=== PATIENT | male | born 1940 | race Caucasian/White ===

== ENCOUNTER 2018-04-14 16:06 | Inpatient (IN) | payer OTHER ==
[~2018-04-14] VITALS: Ht 162.6 cm; Wt 59.0 kg
[~2018-04-14 16:06] MED LIST: CODE118S2 PO; RAMI5CAP35 PO
--- NOTE | 2018-04-14 16:30 | NUR ---
Admitting notes Direct admit from the office of Dr. Cortes ambulatory accompanied by the with a chief complaint of hyponatremia , oriented to room, safety , call light within reach , needs attended.
[2018-04-14 16:38] VITALS: BP_SYST 99
[2018-04-14] MEDS ORDERED: SODIUM POLYSTYRENE SULFONATE 15 GM/60 ML UDBTL PO ONE (16:45)
--- NOTE | 2018-04-14 17:03 | NUR ---
CARDIOLOGY CONSULT CALLED TO DR Cesar DUNLAP, RE: HX OF AFIB. SPOKE TO LUIGI
--- NOTE | 2018-04-14 17:05 | NUR ---
GI CONSULT WAS CALLED TO DR CEDILLO, RE: CIRRHOSIS. SPOKE TO LANCE
--- NOTE | 2018-04-14 17:06 | NUR ---
CONSULTATION PAGED/CALLED Reason for Consultation: [] HYPONATREMIA Person Who was Notified: [] LANCE Consulting Physician: [] DR Chito GODOY GETTER OPERATOR FOR DR Janette NATHAN Pulper Operator Specialty: [] NEPHROLOGY Ordering Physician: [] DR Carie CHURCH
--- NOTE | 2018-04-14 17:08 | NUR ---
CONSULTATION PAGED/CALLED Reason for Consultation: [] HX OF AFIB Person Who was Notified: [] LUIGI Consulting Physician: [] DR OLESYA DUNLAP Sack Cleaner Specialty: [] CARDIOLOGY Ordering Physician: [] DR Carie CHURCH
--- NOTE | 2018-04-14 17:11 | NUR ---
CONSULTATION PAGED/CALLED Reason for Consultation: [] CIRRHOSIS Person Who was Notified: [] LANCE Consulting Physician: [] DR Lucila CEDILLO Film Loader Specialty: [] GI Ordering Physician: [] DR Carie CHURCH
[2018-04-14 17:16] LABS: BASOPHILS % (AUTO) 0.6 % (0.0-2.0); EOSINOPHILS # (AUTO) 0.1 K/uL (0.0-0.4); EOSINOPHILS % (AUTO) 1.6 % (0.0-4.0); HEMATOCRIT 34.4 % (36-54); HEMOGLOBIN 11.6 g/dL (14.0-18.0); LYMPHOCYTES # (AUTO) 0.9 K/uL (1.0-5.5); LYMPHOCYTES % (AUTO) 17.7 % (20.5-51.5); MEAN CORPUSCULAR HEMOGLOBIN 31 pg (27-31); MEAN CORPUSCULAR HGB CONC 34 % (32-36); MEAN CORPUSCULAR VOLUME 91 fL (79.0-98.0); MONOCYTES # (AUTO) 0.6 K/uL (0.0-1.0); MONOCYTES % (AUTO) 10.7 % (1.7-9.3); NEUTROPHILS # (AUTO) 3.7 K/uL (1.8-7.7); NEUTROPHILS % (AUTO) 69.4 % (40.0-70.0); PLATELET COUNT (AUTO) 210 K/uL (130-430); WHITE BLOOD COUNT (AUTO) 5.3 K/uL (4.8-10.8)
[2018-04-14] MEDS ORDERED: CARV3.1246 PO (17:21)
[2018-04-14] MEDS ORDERED: FAMO20TA8 PO (17:21)
[2018-04-14] MEDS ORDERED: DILT30TA36 PO (17:21)
[2018-04-14] MEDS ORDERED: DONE5TAB26 PO (17:21)
[2018-04-14] MEDS ORDERED: BUSP5TAB3 (17:21)
[2018-04-14] MEDS ORDERED: RIOC2.5T PO (17:21)
[2018-04-14] MEDS ORDERED: FURO-149 PO (17:21)
[2018-04-14] MEDS ORDERED: DIGO125T4 PO (17:21)
[2018-04-14] MEDS ORDERED: IPRATROPIUM/ALBUTEROL SULFATE 3 ML AMPUL.NEB INH PRN (17:30)
[2018-04-14 17:31] LABS: ALANINE AMINOTRANSFERASE 18 U/L (12-78); ALBUMIN 3.6 g/dL (3.4-4.8); ANION GAP 9 (5-15); ASPARTATE AMINOTRANSFERASE 25 U/L (10-37); CALCIUM 8.6 mg/dL (8.4-11.0); CHLORIDE 87 mmol/L (98-107); CREATININE 1.91 mg/dL (0.55-1.30); GLUCOSE 112 mg/dL (70-99); POTASSIUM 5.1 mmol/L (3.5-5.1); TOTAL BILIRUBIN 0.6 mg/dL (0.0-1.0); UREA NITROGEN, BLOOD 53 mg/dL (8-21)
[2018-04-14 17:33] LABS: SODIUM SERUM 119 mmol/L (136-145)
[2018-04-14] MEDS: NACL 0.9% 1,000 ML IV SCH (17:35)
--- NOTE | 2018-04-14 17:48 | NUR ---
Physical Assessment: Patient ambulatory, awake, alert and oriented. Stable. No skin issues. Safety measures in placed. Call light within reach.
[2018-04-14 17:55] VITALS: BP_SYST 99
--- NOTE | 2018-04-14 19:30 | NUR ---
Closing notes: Patient on bed resting. Stable. Needs attended. at bedside. Safety measures in placed. Call light within reach. Report given to SLIM Wise. Addendum: 04/14/18 at 1934 by Vannesa Peoples RN Report given to SLIM Davis not to SLIM Wise.
--- NOTE | 2018-04-14 20:00 | NUR ---
INITIAL CONTACT patient is alert oriented to name and place. patient has IV on right forearm 22G, infusing NS at 50 ml/hr, no infiltration noted. patient has SCD on bilateral lower extremity, tolerating well. plan of care discussed and vised patient to call PRN. will continue to monitor. bed in lowest position, call light within reach, bed alarm on.
[2018-04-14 20:05] VITALS: BP_SYST 104
--- NOTE | 2018-04-14 21:05 | NUR ---
PAIN patient complaining of sever cramping pain on his bilateral lower extremity, 08/15. SCD readjusted and attempted to massage patient's leg. patient states that massaging it is making it worse. informed patient to try to flex and extend his leg and that MD would be paged for pain medication. patient verbalized understanding. will continue to monitor.
--- NOTE | 2018-04-14 21:06 | NUR ---
Paged Dr. Cortes Paged Dr. Cortes, dialed [phone], s/w Chris.
[2018-04-14] MEDS: traZODone HCL 50 MG TABLET (DESYREL) PO SCH (21:17)
--- NOTE | 2018-04-14 21:32 | NUR ---
Second Call for Dr. Cortes Second Call for Dr. Cortes, dialed [phone], s/w Maria Teresa
--- NOTE | 2018-04-14 21:38 | NUR ---
RETURNED CALL Dr. Cortes returned call. informed him that patient is complaining of cramping pain 08/15. Dr. Cortes asked if patient has scd placed on his legs. informed him that patient does and patient still complains of pain. attempted to massage patient's leg, but patient states that the pain is too severe. order received for tramadol 50mg po q8HR for pain. order read back and verified. he asked if patient is agitated, per daughter, patient can get severely agitated. informed him that patient is agitated right now due to pain, he did receive his trazodone 30minutes earlier. Dr. Cortes stated to place order for sitter if patient gets agitated. order read back and verified.
[2018-04-14] MEDS ORDERED: traMADol HCL HCL 50 MG TABLET (ULTRAM) PO PRN (21:45)
--- NOTE | 2018-04-14 21:55 | NUR ---
PAIN MEDICATION AND EDUCATION administered pain medication per order. patient educated on side effects and increased risk for fall due to one of side effect being dizziness. advised patient not to ambulate with assist. patient requesting SCD to be removed, educated patient on the indication for SCD. patient verbalized understanding. will continue to monitor. bed in lowest position, call light within reach, bed alarm on.
[2018-04-14 22:12] LABS: ANION GAP 8 (5-15); CALCIUM 8.3 mg/dL (8.4-11.0); CHLORIDE 87 mmol/L (98-107); CREATININE 1.68 mg/dL (0.55-1.30); GLUCOSE 91 mg/dL (70-99); POTASSIUM 5.1 mmol/L (3.5-5.1); UREA NITROGEN, BLOOD 50 mg/dL (8-21)
[2018-04-14 22:29] LABS: SODIUM SERUM 118 mmol/L (136-145)
--- NOTE | 2018-04-14 22:29 | NUR ---
CRITICAL VALUE call received from Azra Castellanos from laboratory for critical value of sodium 118 and chloride 87. value read back and verified. will inform
--- NOTE | 2018-04-14 22:32 | NUR ---
Paged Dr. Cortes Paged Dr. Cortes, dialed [phone], s/w Chris.
--- NOTE | 2018-04-14 22:40 | NUR ---
RETURNED CALL Dr. Cortes returned call. informed him that patient's Na was 118, Cl 87. he states that he did not order chemistry. informed him that Dr. Colmenares ordered it. asked if he wanted Dr. Colmenares called. he asked what was potassium level and to call Dr. Colmenares.
--- NOTE | 2018-04-14 22:52 | NUR ---
Paged Dr. Cindy Zhao is computer system validation specialist Paged Dr. Cindy Zhao is computer system validation specialist, dialed [phone]. SLIM Oquendo spoke to the doctor.
--- NOTE | 2018-04-14 22:55 | NUR ---
SPOKE WITH MD spoke with Dr. White. informed her that patient's sodium is 118, chloride is 87. she asked previous level. informed her that sodium was 119. she asked BUN and creatinine level. informed her the level. Dr. White asked about urine creatinine level. informed her that it has not been collected yet. she asked if patient has not urinated the whole night. informed her that patient had some incontinence but not alot. order received for browning catheter insertion if urine residual is greater than 200ml and to increase fluid to NS 80ml/hr. order read back and verified. after speaking with AMERICAN SIGN LANGUAGE TEACHER, informed Dr. White that per AMERICAN SIGN LANGUAGE TEACHER, patient had urine output earlier, but he forgot to collect urine. asked if she wanted me to wait until patient urinates or if she wanted straight cath patient. she states to ask patient if he is able to urinate, but also to do bladder scan first then browning catheter if patient is retaining urine. will carry out order.
--- NOTE | 2018-04-14 23:30 | NUR ---
BROWNING CATHETER INSERTION bladder scan was done. patient had residual of 394ml. asked patient if he is able to urinate. patient does not answer. palpated bladder, patient complaining of discomfort, and bladder distension noted. inserted 16Fr Browning Catheter using sterile technique. patient tolerated well. after insertion, noted 340ml of clear, yellow urine draining. secured catheter in place, hung it lower than bladder. will continue to monitor. Addendum: 04/15/18 at 0211 by Albina Valdez RN informed patient that since he is unable to urinate and complains of discomfort when bladder is palpated and patient has residual, browning catheter would be inserted. patient verbalized understanding.
[2018-04-14 23:53] LABS: BILIRUBIN,URINE NEGATIVE (NEGATIVE); BLOOD, URINE NEGATIVE (NEGATIVE); CLARITY/URINE CLEAR (CLEAR); COLOR,URINE YELLOW (YELLOW); GLUCOSE,URINE NEGATIVE (NEGATIVE); KETONES,URINE NEGATIVE (NEGATIVE); LEUKOCYTE ESTERASE ,URINE NEGATIVE (NEGATIVE); NITRITE, URINE NEGATIVE (NEGATIVE); PROTEIN URINE NEGATIVE (NEGATIVE); UROBILINOGEN,URINE 0.2 (0.2-1.0)
[2018-04-15 00:52] VITALS: BP_SYST 98
--- NOTE | 2018-04-15 02:10 | NUR ---
ROUNDS patient sleeping in bed, breathing even and unlabored. bed in lowest position, call light within reach, bed alarm on. will continue to monitor.
[2018-04-15 04:00] VITALS: BP_SYST 98
--- NOTE | 2018-04-15 04:01 | NUR ---
ROUNDS patient denies pain or shortness of breath. advised patient to call PRN. patient verbalized understanding. bed in lowest position, call light within reach, bed alarm on.
--- NOTE | 2018-04-15 04:20 | NUR ---
CALLED Dr. White called asking urine creatinine level. informed her that patient's result is not back yet. she states that she wanted it done STAT and to call laboratory and to change order to stat.
--- NOTE | 2018-04-15 04:22 | NUR ---
called laboratory. spoke with SHIRA. informed him that doctor wanted urine creatinine and random sodium done as stat asked if it would make difference if i change order to stat since urine creatinine was not placed as stat. he states that it would not make difference since the specimen needs to be sent to [facility] and they process it and sent the result. will inform .
--- NOTE | 2018-04-15 04:26 | NUR ---
Paged Dr. White Paged Dr. White, dialed [phone]. SLIM Oquendo spoke to the doctor.
--- NOTE | 2018-04-15 04:34 | NUR ---
SPOKE WITH informed Dr. White that the test is done in [facility] and they slat pickler specimen at 0700 so it would not be processed until it's sent to [facility]. order received to add urine osmolality and serum osmolality. order read back and verified. also verified with her that urine creatinine and random sodium is the test she wanted done. she verified that those are the test she wanted.
--- NOTE | 2018-04-15 04:43 | NUR ---
called laboratory and asked if they have enough urine for urine osmolality test. was informed that they have enough urine for urine osmolality.
--- NOTE | 2018-04-15 06:29 | NUR ---
ROUNDS patient sleeping in bed, no distress noted. bed in lowest position, call light within reach, bed alarm on. will continue to monitor. IV fluid infusing NS at 80ml/hr.
[2018-04-15 06:37] LABS: INR 1.1 (0.80-1.20); PROTHROMBIN TIME 11.5 SECS (9.5-12.5)
[2018-04-15 06:52] LABS: ALANINE AMINOTRANSFERASE 17 U/L (12-78); ALBUMIN 3.1 g/dL (3.4-4.8); ANION GAP 5 (5-15); ASPARTATE AMINOTRANSFERASE 24 U/L (10-37); CALCIUM 8.2 mg/dL (8.4-11.0); CHLORIDE 89 mmol/L (98-107); CREATININE 1.59 mg/dL (0.55-1.30); FREE T4 (FREE THYROXINE) 0.9 ng/dL (0.6-1.6); GLUCOSE 89 mg/dL (70-99); POTASSIUM 4.6 mmol/L (3.5-5.1); THYROID STIMULATING HORMONE 1.25 uIu/mL (0.34-4.82); TOTAL BILIRUBIN 0.6 mg/dL (0.0-1.0); UREA NITROGEN, BLOOD 43 mg/dL (8-21)
[2018-04-15 07:05] LABS: BASOPHILS % (AUTO) 0.4 % (0.0-2.0); EOSINOPHILS # (AUTO) 0.1 K/uL (0.0-0.4); EOSINOPHILS % (AUTO) 2.9 % (0.0-4.0); HEMATOCRIT 31.8 % (36-54); HEMOGLOBIN 10.8 g/dL (14.0-18.0); LYMPHOCYTES # (AUTO) 0.8 K/uL (1.0-5.5); LYMPHOCYTES % (AUTO) 17.9 % (20.5-51.5); MEAN CORPUSCULAR HEMOGLOBIN 30 pg (27-31); MEAN CORPUSCULAR HGB CONC 34 % (32-36); MEAN CORPUSCULAR VOLUME 90 fL (79.0-98.0); MONOCYTES # (AUTO) 0.6 K/uL (0.0-1.0); NEUTROPHILS # (AUTO) 2.8 K/uL (1.8-7.7); NEUTROPHILS % (AUTO) 64.8 % (40.0-70.0); PLATELET COUNT (AUTO) 190 K/uL (130-430); RED BLOOD CELL COUNT(AUTO) 3.55 MIL/uL (4.2-6.2); WHITE BLOOD COUNT (AUTO) 4.3 K/uL (4.8-10.8)
[2018-04-15 07:07] LABS: SODIUM SERUM 119 mmol/L (136-145)
--- NOTE | 2018-04-15 07:11 | NUR ---
CALL FROM LAB received call from laboratory regarding sodium of 119. will inform dayshift RN to inform MD.
[2018-04-15] MEDS: NACL 0.9% 1,000 ML IV SCH ×2 (07:24→20:14)
--- NOTE | 2018-04-15 07:28 | NUR ---
END OF SHIFT care endorsed to Mendoza SMALLS. informed him that patient's sodium level is 119. Dr. White was made aware of sodium level of 118 from yesterday and will come see patient in morning. no distress noted with patient.
--- NOTE | 2018-04-15 07:30 | NUR ---
Initial Note Received report from the night nurse Azra. Pt AOX4. No sign of distress noted at this time. Bed is at lowest position with bed alarm on. Call light within reach.
[2018-04-15 07:50] VITALS: BP_SYST 96
--- NOTE | 2018-04-15 09:26 | NUR ---
RN Rounds Pt resting and no sign of distress noted at this time. Bed is at lowest position with bed alarm on. Call light within reach. Pt is now NPO waiting for abdominal US testing.
--- NOTE | 2018-04-15 10:20 | NUR ---
Abnormal Labs Na 119, BUN 43, Creatinine 1.43, Calcium 8.2 Dr. Colmenares aware. No new orders received.
[2018-04-15] MEDS ORDERED: FUROSEMIDE 20 MG TABLET PO ONE (10:30)
--- NOTE | 2018-04-15 11:28 | NUR ---
RN Rounds Pt awake and and does not complain of any pain at this time. Bed is at lowest position with bed alarm on. Call light within reach.
--- NOTE | 2018-04-15 11:33 | NUR ---
RN Rounds Pt resting and does not show any sign of distress at this time. Family member at bedside. Bed is at lowest position with bed alarm on. Call light within reach.
[2018-04-15 11:37] LABS: URINE SODIUM, RANDOM 50 mmol/L (40-220)
[2018-04-15 12:00] VITALS: BP_SYST 99
--- NOTE | 2018-04-15 13:40 | NUR ---
RN Rounds Pt awake and does not show any sign of distress at this time. Bed is at lowest position with bed alarm on. Call light within reach.
--- NOTE | 2018-04-15 15:22 | NUR ---
RN Rounds Pt resting and does not show any sign of distress at this time. Family members at bedside. Bed is at lowest position with bed alarm on. Call light within reach.
[2018-04-15 16:00] VITALS: BP_SYST 97
--- NOTE | 2018-04-15 17:15 | NUR ---
RN Rounds Pt awake and does not complain of any pain at this time. Family members at bedside. Bed is at lowest position with bed alarm on. Call light within reach.
--- NOTE | 2018-04-15 18:49 | NUR ---
Closing Note Pt AOX4. No sign of distress noted at this time. Bed is at lowest position with bed alarm on. Call light within reach. Pt's Na is at 119, BUN 43, creatinine 1.59. Dr. Colmenares aware. He only ordered 20 mg of lasix. No more orders received.
--- NOTE | 2018-04-15 20:00 | NUR ---
Initial Notes Received patient resting in bed, awake, alert, easily disoriented, Romanian speaking. Patient denies any acute distress or pain at this time. Vital signs stable. Breathing is even and unlabored. IV site patent/clean/dry. Torres draining to gravity. Educated patient regarding use of call light for assistance and fall precautions, patient verbalized understanding. Call light in hand, fall precautions in place. Will continue to monitor.
[2018-04-15 20:15] VITALS: BP_SYST 96
[2018-04-15] MEDS: traZODone HCL 50 MG TABLET (DESYREL) PO SCH (20:15)
[2018-04-15] MEDS: FUROSEMIDE 20 MG TABLET PO SCH (20:15)
--- NOTE | 2018-04-15 22:00 | NUR ---
Nursing Notes Patient resting in bed, awake, disoriented requiring frequent reorientation to surroundings. Patient denies any acute distress at this time. Hygiene care provided by CONTROL SYSTEMS TECHNICIAN. Patient's contacted multiple times per patient's request, patient talked to on phone. Repositioned patient for comfort. Needs addressed. Call light in hand, fall precautions in place. Will continue to monitor.
--- NOTE | 2018-04-16 | NUR ---
Nursing Notes Patient resting in bed with eyes closed, easily aroused. Patient denies any acute distress or pain at this time. Breathing is even and unlabored. IV site patent/clean/dry. Torres draining to gravity. Repositioned patient for comfort. Call light in hand, fall precautions in place.
[2018-04-16 00:45] VITALS: BP_SYST 90
--- NOTE | 2018-04-16 02:00 | NUR ---
Nursing Notes Patient resting in bed with eyes closed. No acute distress noted, breathing is even and unlabored. IV site patent/clean/dry. Torres draining to gravity. Call light in hand, fall precautions in place. Will continue to monitor.
--- NOTE | 2018-04-16 04:20 | NUR ---
Nursing Notes Patient resting in bed with eyes closed, easily aroused. Patient denies any acute distress, pain, or needs at this time. Breathing is even and unlabored. IV site patent. Torres draining to gravity. Call light in hand, fall precautions in place, will continue to monitor.
--- NOTE | 2018-04-16 06:34 | NUR ---
Closing Notes Patient resting in bed with eyes closed, easily aroused. Patient denies any acute distress or pain at this time. Breathing is even and unlabored. IV site patent/clean/dry, no S/S infection/infiltration noted. Torres draining yellow urine to gravity. All needs addressed throughout shift. Call light in hand, fall precautions in place. Will continue to monitor for changes and safety, and endorse all patient care/needs to oncoming nurse.
--- NOTE | 2018-04-16 07:20 | NUR ---
am rounds: patient sleeping during rounds. bedside report given by night nurse shivam. call light with in reach. bed locked at lowest position. bed alarm on.stable.
--- NOTE | 2018-04-16 07:56 | NUR ---
Nutrition Update Gerald Scale 18 noted. Pt admitted for Hyponatremia Diet: 2gm Na diet BMI: 22.3 kg/m2 RD to follow per nutrition care standards.
[2018-04-16 09:10] VITALS: BP_SYST 112
[2018-04-16] MEDS: NACL 0.9% 1,000 ML IV SCH ×2 (09:22→22:26)
[2018-04-16] MEDS: FUROSEMIDE 20 MG TABLET PO SCH ×2 (10:00→21:00)
--- NOTE | 2018-04-16 10:04 | NUR ---
physical therapy: patient seen walking via fww with physical therapist in the room and going outside the nursing station then back to his bed.with good steady gait.
[2018-04-16 12:00] VITALS: BP_SYST 105
--- NOTE | 2018-04-16 12:16 | NUR ---
rn rounds: patient's daughter at the bedside.patient resting. no needs this time. stable.
[2018-04-16 13:42] LABS: ANION GAP 6 (5-15); CALCIUM 8.3 mg/dL (8.4-11.0); CHLORIDE 95 mmol/L (98-107); CREATININE 1.53 mg/dL (0.55-1.30); GLUCOSE 105 mg/dL (70-99); POTASSIUM 4.3 mmol/L (3.5-5.1); SODIUM SERUM 126 mmol/L (136-145); UREA NITROGEN, BLOOD 37 mg/dL (8-21)
--- NOTE | 2018-04-16 13:43 | NUR ---
F/U CARDIO CONSULT HX OF AFIB DR Cesar DUNLAP [phone] S/W HERIBERTO EXCHANGE@ [phone]
--- NOTE | 2018-04-16 14:21 | NUR ---
Spoke with Dr. Valles updates given on new labs and current telemetry rhythm, MD to see the patient later today.
--- NOTE | 2018-04-16 14:45 | NUR ---
MD ROUNDS: PATIENT SEEN BY DR CHURCH AND SODIUM RESULTS SEEN.CALLED DR NATHAN FOR THE RESULTS BUT DID NOT RETURN THE CALL.
[2018-04-16 16:00] VITALS: BP_SYST 108
--- NOTE | 2018-04-16 16:35 | NUR ---
cardio rounds: patient seen by dr alexandra and spoke to family at the bedside.updates were given by .
--- NOTE | 2018-04-16 19:35 | NUR ---
CLOSING NOTES: ENDORSED TO NIGHT NURSE [place] PATIENT SLEEPING DURING ROUNDS. BED ALARM ON. CALL LIGHT WITH IN REACH. BED LOCKED AT LOWEST POSITION. STABLE.
--- NOTE | 2018-04-16 19:40 | NUR ---
Opening note Pt asleep, easily arousable. VSS satting at 98% on room air. Pt denies any pain at this time. IV fluids infusing as ordered R. FA 22G no infiltration noted. Torres catheter secured noted with clear, yellow urine. Call light within reach. Bed low, locked and alarm on. Will continue to monitor pt.
[2018-04-16 19:50] VITALS: BP_SYST 91
[2018-04-16] MEDS: traZODone HCL 50 MG TABLET (DESYREL) PO SCH (21:00)
[2018-04-16] MEDS: QUEtiapine FUMARATE 25 MG TABLET PO SCH (22:17)
--- NOTE | 2018-04-16 22:30 | NUR ---
Hypotension Pt alert, awake, pt denies dizziness. BP 75/[address] Cortes paged at [address]. Dr[address] Cortes called back at 9203 and informed Pt is hypotensive and on fluid restriction 800ml/daily, and received order to give NS 250ml bolus x1 now and to hold Lasix and BP meds if SBP is below 110. CRN aware. Will carry out orders.
--- NOTE | 2018-04-16 22:53 | NUR ---
Bolus given Bolus of NS 250ml x 1 given.
[2018-04-17] VITALS (7 sets, daily range): BP systolic 81–104
--- NOTE | 2018-04-17 00:30 | NUR ---
Rounds Pt asleep. Respirations even, unlabored. IV fluids infusing as ordered R. FA 22G no infiltration noted. Call light within reach. Bed alarm on. To monitor.
--- NOTE | 2018-04-17 04:30 | NUR ---
Rounds BP 81/53 HR 62, Pt asleep, easily arousable, denies any dizziness or sob. Call light within reach. To monitor.
[2018-04-17 06:15] LABS: BASOPHILS % (AUTO) 0.4 % (0.0-2.0); EOSINOPHILS # (AUTO) 0.1 K/uL (0.0-0.4); EOSINOPHILS % (AUTO) 2.6 % (0.0-4.0); HEMOGLOBIN 11.6 g/dL (14.0-18.0); LYMPHOCYTES # (AUTO) 1.2 K/uL (1.0-5.5); MEAN CORPUSCULAR HEMOGLOBIN 31 pg (27-31); MEAN CORPUSCULAR HGB CONC 34 % (32-36); MEAN CORPUSCULAR VOLUME 90 fL (79.0-98.0); MONOCYTES # (AUTO) 0.7 K/uL (0.0-1.0); NEUTROPHILS # (AUTO) 3.5 K/uL (1.8-7.7); PLATELET COUNT (AUTO) 188 K/uL (130-430); RED BLOOD CELL COUNT(AUTO) 3.76 MIL/uL (4.2-6.2); RED CELL DISTRIBUTION WIDTH 13.9 % (9.0-15.0); WHITE BLOOD COUNT (AUTO) 5.5 K/uL (4.8-10.8)
[2018-04-17 06:34] LABS: ALANINE AMINOTRANSFERASE 17 U/L (12-78); ANION GAP 7 (5-15); ASPARTATE AMINOTRANSFERASE 21 U/L (10-37); CALCIUM 8.3 mg/dL (8.4-11.0); CHLORIDE 96 mmol/L (98-107); CREATININE 1.43 mg/dL (0.55-1.30); GLUCOSE 85 mg/dL (70-99); POTASSIUM 3.9 mmol/L (3.5-5.1); SODIUM SERUM 126 mmol/L (136-145); TOTAL BILIRUBIN 0.7 mg/dL (0.0-1.0); UREA NITROGEN, BLOOD 32 mg/dL (8-21)
--- NOTE | 2018-04-17 06:45 | NUR ---
Closing note Pt asleep, arousable. No acute distress noted. IV fluids infusing on R. FA 22G no infiltration noted. Pt to go for usd guided paracentesis, consent signed in chart. Call light within reach. Bed low, alarm on. To endorse to am nurse.
--- NOTE | 2018-04-17 07:50 | NUR ---
INITIAL NOTE RECEIVED PT IN BED, NO S/S OF DISTRESS OR SOB NOTED, PT HAS NO C/O PAIN AT THIS TIME, PT IN STABLE CONDITION, PT AAOX4, VERBAL, IV CATHETER PATENT, NO SIGNS OF INFECTION OR INFILTRATION NOTED, RUNNING IV FLUIDS ORDERED. BED AT LOWEST POSITION, CALL LIGHT WITHIN REACH, WILL CONTINUE TO MONITOR PT FOR ANY CHANGES. FALL AND SAFETY PRECAUTIONS IN PLACE. F/C DRAINING VIA GRAVITY. PT HAS BILATERAL SCD'S IN PLACE.
[2018-04-17] MEDS: FUROSEMIDE 20 MG TABLET PO SCH ×2 (08:25→21:00)
[2018-04-17] MEDS: NACL 0.9% 1,000 ML IV SCH ×2 (08:26→20:46)
[2018-04-17] MEDS ORDERED: LIDOCAINE 1% 10 MG/ML, 20 ML MDV INJ ONE (08:45)
--- NOTE | 2018-04-17 10:20 | NUR ---
ROUNDS PT IN BED, NO S/S OF DISTRESS OR SOB NOTED, PT HAS NO C/O PAIN AT THIS TIME, PT IN STABLE CONDITION. PT RESTING COMFORTABLY, WILL CONTINUE TO MONITOR PT FOR ANY CHANGES.
--- NOTE | 2018-04-17 11:09 | NUR ---
PARACENTESIS UNABLE TO PERFORM PARACENTESIS DUE TO NOT ENOUGH FLUID IN ABDOMEN.
--- NOTE | 2018-04-17 12:02 | NUR ---
Dietitian Recommendations * Recommend 2 gm Na, 800 ml fluid restriction LP, RD Please refer to Nutrition Assessment for details.
--- NOTE | 2018-04-17 15:00 | NUR ---
ROUNDS DR LYNNETTE CHRISTINE, AWARE OF PATIENTS CONDITION.
--- NOTE | 2018-04-17 15:30 | NUR ---
PHYSICAL THERAPY CO-SIGN The Physical Therapy Progress Notes documented by Metal Engraver have been reviewed. I concur with the documentation of this ORTHOPAEDIC DOCTOR. Plan: continue as per plan of care if he remains in this hospital. Reviewed/Co-Signed by: Michelle Garcia PT Documentation Done by: Kaushik Winkler ORTHOPAEDIC DOCTOR Addendum: 04/17/18 at 1538 by Michelle Garcia PT Amended: Links added.
--- NOTE | 2018-04-17 15:35 | NUR ---
MD FROST SPOKE WITH DR CHURCH IN REGARDS TO BLOOD PRESSURE AND PT GOING HOME TODAY, PER MD PT TO STAY ONE MORE DAY AND START HIM ON ADEMPAS PER ORDER AND IN HIS MEDICATION RECONCILIATION SHEET.
[2018-04-17] MEDS: ADEMPAS 2.5 MG PO SCH ×2 (17:00→21:00)
--- NOTE | 2018-04-17 17:28 | NUR ---
DR CHURCH WAS PAGED
--- NOTE | 2018-04-17 17:35 | NUR ---
MD CALL DR LYNNETTE ROGEL, AWAITING CALL BACK TO NOTIFY HIM OF PATIENT'S BLOOD PRESSURE AND THE MEDICATION DUE AT 1700.
--- NOTE | 2018-04-17 17:55 | NUR ---
MD MICHAEL CHRISTINE, AWARE OF PATIENTS CONDITION. Addendum: 04/17/18 at 1807 by Nicolle Dunn RN SPOKE WITH DR CHURCH AND HE STATED TO HOLD THE MEDICATION DUE TO LOW BLOOD PRESSURE, PARAMETERS IN PLACE TO HOLD IF SBP LESS THAN 100
--- NOTE | 2018-04-17 18:09 | NUR ---
CALL DR DUNLAP PAGED TO SEE IF HE WAS COMING IN TO SEE PT, AWAITING CALL BACK. Addendum: 04/17/18 at 1820 by Nicolle Dunn RN DR DUNLAP ROUNDING AWARE OF PATIENTS CONDITION, NEW ORDERS GIVEN.
[2018-04-17] MEDS ORDERED: NS 250 ML IV ONE (18:30)
--- NOTE | 2018-04-17 18:52 | NUR ---
CLOSING NOTE PT IN BED, NO S/S OF DISTRESS OR SOB NOTED, PT HAS NO C/O PAIN AT THIS TIME, PT IN STABLE CONDITION, PT AAOX4, VERBAL, IV CATHETER PATENT, NO SIGNS OF INFECTION OR INFILTRATION NOTED, RUNNING IV FLUIDS ORDERED. BED AT LOWEST POSITION, CALL LIGHT WITHIN REACH, WILL ENDORSE CARE OF PT TO INCOMING NURSE. FALL AND SAFETY PRECAUTIONS IN PLACE. F/C DRAINING VIA GRAVITY. PT HAS BILATERAL SCD'S IN PLACE.
--- NOTE | 2018-04-17 20:01 | NUR ---
Opening note Pt asleep, easily arousable. VSS. No distress noted. IV fluids infusing as ordered R. Fa 22G clear, patent. Torres cath intact. Call light remains within reach. To monitor.
[2018-04-17] MEDS ORDERED: RIOCIGUAT 2.5 MG PO SCH (21:00)
[2018-04-17] MEDS: traZODone HCL 50 MG TABLET (DESYREL) PO SCH (21:00)
[2018-04-17] MEDS: QUEtiapine FUMARATE 25 MG TABLET PO SCH (22:31)
[2018-04-18] VITALS: BP_SYST 109
--- NOTE | 2018-04-18 00:25 | NUR ---
Rounds Pt asleep. Respiration even and unlabored. Call light within reach. Bed alarm on. To monitor.
--- NOTE | 2018-04-18 03:29 | NUR ---
Rounds Pt asleep. No s/s distress noted. Call light within reach. Bed alarm on. Will continue to monitor.
--- NOTE | 2018-04-18 06:20 | NUR ---
Closing note Pt asleep. No acute distress noted. IVF infusing R. FA 22G no infiltration noted. Bruno SCDs on. BEd low/locked, bed alarm on. To endorse to am nurse.
[2018-04-18 06:44] LABS: ANION GAP 8 (5-15); CHLORIDE 99 mmol/L (98-107); CREATININE 1.23 mg/dL (0.55-1.30); GLUCOSE 91 mg/dL (70-99); POTASSIUM 3.9 mmol/L (3.5-5.1); SODIUM SERUM 128 mmol/L (136-145); UREA NITROGEN, BLOOD 24 mg/dL (8-21)
[2018-04-18 07:02] LABS: BASOPHILS % (AUTO) 0.3 % (0.0-2.0); EOSINOPHILS # (AUTO) 0.2 K/uL (0.0-0.4); EOSINOPHILS % (AUTO) 3.2 % (0.0-4.0); HEMOGLOBIN 11.3 g/dL (14.0-18.0); LYMPHOCYTES # (AUTO) 0.9 K/uL (1.0-5.5); LYMPHOCYTES % (AUTO) 17.7 % (20.5-51.5); MEAN CORPUSCULAR HEMOGLOBIN 29 pg (27-31); MEAN CORPUSCULAR HGB CONC 32 % (32-36); MEAN CORPUSCULAR VOLUME 90 fL (79.0-98.0); MONOCYTES # (AUTO) 0.6 K/uL (0.0-1.0); NEUTROPHILS # (AUTO) 3.5 K/uL (1.8-7.7); NEUTROPHILS % (AUTO) 67.8 % (40.0-70.0); PLATELET COUNT (AUTO) 170 K/uL (130-430); RED BLOOD CELL COUNT(AUTO) 3.88 MIL/uL (4.2-6.2); WHITE BLOOD COUNT (AUTO) 5.2 K/uL (4.8-10.8)
[2018-04-18 08:00] VITALS: BP_SYST 92
--- NOTE | 2018-04-18 08:00 | NUR ---
AM Note received report from kilnman RN, pt resting in bed, A&Ox4, respirations even and unlabored, no complaint of pain at this time, IV infusing and patent, browning catheter draining to gravity, SCDs in place, pt educated on use of call light and asked to call for assistance, pt verbalized understanding, call light in reach, bed in low position, bed alarm on, fall and aspiration precautions in place.
[2018-04-18] MEDS: NACL 0.9% 1,000 ML IV SCH (08:57)
[2018-04-18] MEDS: ADEMPAS 2.5 MG PO SCH ×2 (09:00→15:00)
[2018-04-18] MEDS: FUROSEMIDE 20 MG TABLET PO SCH (09:00)
--- NOTE | 2018-04-18 10:10 | NUR ---
RN Rounds pt sleeping in bed, respirations even and unlabored, family at bedside, fall and aspiration precautions in place.
[2018-04-18] MEDS ORDERED: FURO-150 PO (10:25)
--- NOTE | 2018-04-18 11:00 | NUR ---
notes- Per case managers, pt refuses home health. at bedside. patient also had browning catheter. Paged Dr. Cortes. waiting for MD to call back.
--- NOTE | 2018-04-18 11:59 | NUR ---
DC Planning: Met with patient and spouse/Faiza at bedside informed them that dr. Cortes spoke with stephanie Couch who agreed with home health f/u. Faiza also agreed to have home health nurse visit despite pt refusal. The pt. has mild dementia per dr. Cortes. Kristin Day made aware and will arrange [facility] per dr. Cortes's request.
--- NOTE | 2018-04-18 12:19 | NUR ---
Lead Sewage Plant Operator DCP obtained HH order. DCP met with pt and pt's family to arrange HH services. Per pt's family agree for pt to receive HH services. Patient choice form completed and filed into pt's chart. DCP sent pt's HH order along with clinicals to [facility] for processing. DCP will continue to follow up.
--- NOTE | 2018-04-18 12:23 | NUR ---
Pagebernarda PANIAGUA paged Dr. Cortes regarding orders.
--- NOTE | 2018-04-18 12:25 | NUR ---
Spoke with spoke with Dr. Cortes, orders to Suzan browning.
[2018-04-18 12:32] VITALS: BP_SYST 98
--- NOTE | 2018-04-18 12:50 | NUR ---
PHYSICAL THERAPY CO-SIGN The Physical Therapy Progress Notes documented by Pierce And Shave Press Operator have been reviewed. I concur with the documentation of this RESEARCH METHODOLOGIST. Patient showed some increased gait distance and making good and steady progress with PT. Plan: continue as per plan of care if he remains in this hospital. Reviewed/Co-Signed by: Michelle Garcia PT Documentation Done by: Kaushik Winkler, RESEARCH METHODOLOGIST Addendum: 04/18/18 at 1457 by Michelle Garcia PT Amended: Links added.
--- NOTE | 2018-04-18 13:13 | NUR ---
D/C browning orders to D/C browning catheter, pt educated about procedure, 10ml fluid removed from balloon, pt educated on breathing exercises, browning catheter removed, intact, pt tolerated well, fall and aspiration precautions in place.
--- NOTE | 2018-04-18 13:31 | NUR ---
Onyx Chip Terrazzo Worker [facility] Per Kareem start of HH services will be April. DAVID informed CM and pt's nurse
--- NOTE | 2018-04-18 15:15 | NUR ---
RN Rounds pt resting in bed, no complaints of pain, no acute distress noted, family at bedside, fall and aspiration precautions in place.
[2018-04-18 16:22] VITALS: BP_SYST 90
--- NOTE | 2018-04-18 16:35 | NUR ---
Bladder Scan pt not yet voided since browning D/C, bladder scan shows 112ml of urine, pt denies urge to void, will continue to monitor, fall and aspiration precautions in place.
--- NOTE | 2018-04-18 17:26 | NUR ---
Notes pt voided 200 ml of clear yellow urine in urinal, fall and aspiration precautions in place.
[2018-04-18 17:30] VITALS: BP_SYST 90
--- NOTE | 2018-04-18 18:08 | NUR ---
D/C Patient Patient given medication reconciliation form and D/C instructions. Exit Care provided. Patient verbalized understanding. MD discussed with patient the results and treatment provided. Patient in stable condition, ID band removed. IV catheter removed, intact and dressing applied, no active bleeding. Patient educated on pain management. All belongings sent with patient. Family with patient for discharge. Addendum: 04/18/18 at 1826 by Diana Jimenez RN Rx of prescriptions given, pts home meds given back, educated pt and son on use of medications and to check BP and HR before administration.
--- NOTE | 2018-04-18 18:10 | NUR ---
notes- Discharge home with [facility] health( [facility]).Patient and family aware that home health nurse will come and see patient tomorrow.
--- NOTE | 2018-04-27 16:32 | NUR ---
Discharge Follow Up Phone Call: BOARDING HOUSE MANAGER called pt ([phone]) and pt's , Faiza, answered the phone. Pt's states that pt is doing well; pt's prescriptions have been filled; there are no questions regarding discharge or medication instructions; pt attended follow up appointment with PCP, Dr. Cortes, on 04/20/18; pt received visit from [facility] on 04/19/18; pt tracks his weight. Pt's did not express any other needs or concerns and denied the need for additional follow up at this time. No further follow up phone calls required at this time.
== END 2018-04-18 18:08 | disposition home health service (06) | DRG 682 ==
LOC: SMU 16:07 → STU 16:34
PROVIDERS: ADMIT Internal Medicine; ATTEND Internal Medicine
DX: N17.9 Acute kidney failure, unspecified (principal); I50.43 Acute on chronic combined systolic (congestive) and diastolic (congestive) heart failure; E87.1 Hypo-osmolality and hyponatremia; I42.9 Cardiomyopathy, unspecified; K76.6 Portal hypertension; I13.0 Hypertensive heart and chronic kidney disease with heart failure and stage 1 through stage 4 chronic kidney disease, or unspecified chronic kidney disease; R18.8 Other ascites; K21.9 Gastro-esophageal reflux disease without esophagitis; J44.9 Chronic obstructive pulmonary disease, unspecified; K76.0 Fatty (change of) liver, not elsewhere classified; N18.9 Chronic kidney disease, unspecified; I48.91 Unspecified atrial fibrillation; F03.90 Unspecified dementia, unspecified severity, without behavioral disturbance, psychotic disturbance, mood disturbance, and anxiety; K74.60 Unspecified cirrhosis of liver; I08.1 Rheumatic disorders of both mitral and tricuspid valves; I27.20 Pulmonary hypertension, unspecified; Z95.0 Presence of cardiac pacemaker; Z79.899 Other long term (current) drug therapy
CPT/HCPCS: 36415; 71045; 76700-TC; 76705; 80048; 80053; 80162-TC; 81003; 82105; 82140-TC; 82570-TC; 83930-TC; 83935-TC; 84302-TC; 84439; 84443-TC; 85025; 85610-TC; 85730-TC; 87081; 97110-GP; 97116-GP; 97530-GP; J2001; J7030; J7050

== ENCOUNTER 2018-06-19 15:17 | Inpatient (IN) | payer OTHER ==
[~2018-06-19] VITALS: Ht 170.2 cm; Wt 64.9 kg
[~2018-06-19 15:17] MED LIST changes: +BUSP5TAB3; +CARV3.1246 PO; -CODE118S2 PO; +DIGO-31 PO; +DILT30TA36 PO; +DONE5TAB26 PO; +FAMO20TA8 PO; +FURO-150 PO; -RAMI5CAP35 PO; +RIOC2.5T PO
[2018-06-19 16:04] VITALS: BP_SYST 106
[2018-06-19] MEDS ORDERED: OMEP-268 PO (16:24)
[2018-06-19 17:00] LABS: ANION GAP 3 (5-15); BASOPHILS % (AUTO) 0.4 % (0.0-2.0); CALCIUM 8.6 mg/dL (8.4-11.0); CHLORIDE 99 mmol/L (98-107); CREATININE 1.57 mg/dL (0.55-1.30); EOSINOPHILS # (AUTO) 0.1 K/uL (0.0-0.4); EOSINOPHILS % (AUTO) 1.7 % (0.0-4.0); GLUCOSE 102 mg/dL (70-99); HEMATOCRIT 28.5 % (36-54); HEMOGLOBIN 9.4 g/dL (14.0-18.0); LYMPHOCYTES # (AUTO) 0.6 K/uL (1.0-5.5); LYMPHOCYTES % (AUTO) 12.3 % (20.5-51.5); MEAN CORPUSCULAR HEMOGLOBIN 30 pg (27-31); MEAN CORPUSCULAR HGB CONC 33 % (32-36); MEAN CORPUSCULAR VOLUME 92 fL (79.0-98.0); MONOCYTES # (AUTO) 0.6 K/uL (0.0-1.0); MONOCYTES % (AUTO) 11.4 % (1.7-9.3); NEUTROPHILS # (AUTO) 3.8 K/uL (1.8-7.7); NEUTROPHILS % (AUTO) 74.2 % (40.0-70.0); PLATELET COUNT (AUTO) 166 K/uL (130-430); POTASSIUM 4.1 mmol/L (3.5-5.1); RED BLOOD CELL COUNT(AUTO) 3.11 MIL/uL (4.2-6.2); RED CELL DISTRIBUTION WIDTH 15.4 % (9.0-15.0); SODIUM SERUM 131 mmol/L (136-145); UREA NITROGEN, BLOOD 31 mg/dL (8-21); WHITE BLOOD COUNT (AUTO) 5.1 K/uL (4.8-10.8)
[2018-06-19] MEDS ORDERED: FUROSEMIDE 40 MG/4 ML VIAL IVP ONE (17:30)
[2018-06-19 19:55] VITALS: BP_SYST 111
[2018-06-19] MEDS ORDERED: RIOCIGUAT 2.5 MG PO SCH (21:00)
[2018-06-19] MEDS: FUROSEMIDE 40 MG/4 ML VIAL IVP SCH (22:08)
[2018-06-19] MEDS: busPIRone HCL 5 MG TABLET PO SCH (22:09)
[2018-06-19] MEDS: DILTIAZEM HCL 30 MG TABLET PO SCH (22:09)
[2018-06-19] MEDS: CARVEDILOL 3.125 MG TABLET (COREG) PO SCH (22:09)
[2018-06-19] MEDS: DIGOXIN 0.125 MG TABLET PO SCH (22:10)
[2018-06-19] MEDS: METOLAZONE 5 MG TABLET PO SCH (22:13)
[2018-06-19 23:59] VITALS: BP_SYST 116
[2018-06-20 06:47] LABS: INR 1.2 (0.80-1.20); PROTHROMBIN TIME 12.3 SECS (9.5-12.5)
[2018-06-20 06:50] LABS: ANION GAP 4 (5-15); CALCIUM 8.5 mg/dL (8.4-11.0); CHLORIDE 98 mmol/L (98-107); CREATININE 1.52 mg/dL (0.55-1.30); GLUCOSE 86 mg/dL (70-99); POTASSIUM 3.3 mmol/L (3.5-5.1); SODIUM SERUM 133 mmol/L (136-145); UREA NITROGEN, BLOOD 32 mg/dL (8-21)
[2018-06-20 06:52] LABS: BASOPHILS % (AUTO) 0.4 % (0.0-2.0); EOSINOPHILS # (AUTO) 0.1 K/uL (0.0-0.4); LYMPHOCYTES # (AUTO) 0.7 K/uL (1.0-5.5)
[2018-06-20 06:57] LABS: ALANINE AMINOTRANSFERASE 8 U/L (12-78); ALBUMIN 3.4 g/dL (3.4-4.8); ASPARTATE AMINOTRANSFERASE 14 U/L (10-37); TOTAL BILIRUBIN 0.8 mg/dL (0.0-1.0)
[2018-06-20 07:05] LABS: EOSINOPHILS % (AUTO) 3.3 % (0.0-4.0); HEMATOCRIT 28.2 % (36-54); HEMOGLOBIN 9.5 g/dL (14.0-18.0); LYMPHOCYTES % (AUTO) 15.4 % (20.5-51.5); MEAN CORPUSCULAR HEMOGLOBIN 31 pg (27-31); MEAN CORPUSCULAR HGB CONC 34 % (32-36); MEAN CORPUSCULAR VOLUME 91 fL (79.0-98.0); MONOCYTES # (AUTO) 0.5 K/uL (0.0-1.0); MONOCYTES % (AUTO) 12.3 % (1.7-9.3); NEUTROPHILS # (AUTO) 3.1 K/uL (1.8-7.7); NEUTROPHILS % (AUTO) 68.6 % (40.0-70.0); PLATELET COUNT (AUTO) 159 K/uL (130-430); RED BLOOD CELL COUNT(AUTO) 3.09 MIL/uL (4.2-6.2); RED CELL DISTRIBUTION WIDTH 15.6 % (9.0-15.0); WHITE BLOOD COUNT (AUTO) 4.4 K/uL (4.8-10.8)
[2018-06-20 07:14] LABS: TOTAL IRON BIND. CAPACITY 281 ug/dL (250-450)
[2018-06-20 08:00] VITALS: BP_SYST 110
[2018-06-20] MEDS: DONEPEZIL HCL 5 MG TABLET (ARICEPT) PO SCH (09:50)
[2018-06-20] MEDS: OMEPRAZOLE 20 MG CAPSULE.DR (PriLOSEC) PO SCH (09:50)
[2018-06-20] MEDS: busPIRone HCL 5 MG TABLET PO SCH ×2 (09:50→21:59)
[2018-06-20] MEDS: METOLAZONE 5 MG TABLET PO SCH ×2 (09:51→22:00)
[2018-06-20] MEDS: FAMOTIDINE 20 MG TABLET PO SCH (09:51)
[2018-06-20] MEDS: DILTIAZEM HCL 30 MG TABLET PO SCH ×3 (09:51→22:00)
[2018-06-20] MEDS: CARVEDILOL 3.125 MG TABLET (COREG) PO SCH ×2 (09:53→21:59)
[2018-06-20] MEDS: FUROSEMIDE 40 MG/4 ML VIAL IVP SCH ×2 (09:54→21:59)
[2018-06-20] MEDS ORDERED: LIDOCAINE 1%, 20 ML MDV 0 ML ONE (10:20)
[2018-06-20 12:30] VITALS: BP_SYST 92
[2018-06-20] MEDS ORDERED: POTASSIUM CHLORIDE 20 MEQ TAB.PRT.SR PO ONE (12:30)
[2018-06-20 16:27] VITALS: BP_SYST 103
[2018-06-20 19:35] VITALS: BP_SYST 101
[2018-06-20] MEDS: DIGOXIN 0.125 MG TABLET PO SCH (22:00)
[2018-06-21 00:30] VITALS: BP_SYST 100
[2018-06-21 07:03] LABS: ANION GAP 5 (5-15); CALCIUM 8.8 mg/dL (8.4-11.0); CHLORIDE 94 mmol/L (98-107); CREATININE 1.53 mg/dL (0.55-1.30); GLUCOSE 98 mg/dL (70-99); POTASSIUM 3.1 mmol/L (3.5-5.1); SODIUM SERUM 133 mmol/L (136-145)
[2018-06-21 07:04] LABS: BASOPHILS % (AUTO) 0.4 % (0.0-2.0); EOSINOPHILS # (AUTO) 0.2 K/uL (0.0-0.4); EOSINOPHILS % (AUTO) 3.5 % (0.0-4.0); HEMATOCRIT 30.1 % (36-54); HEMOGLOBIN 10.1 g/dL (14.0-18.0); LYMPHOCYTES # (AUTO) 0.9 K/uL (1.0-5.5); MEAN CORPUSCULAR HEMOGLOBIN 30 pg (27-31); MEAN CORPUSCULAR HGB CONC 34 % (32-36); MEAN CORPUSCULAR VOLUME 90 fL (79.0-98.0); MONOCYTES # (AUTO) 0.6 K/uL (0.0-1.0); MONOCYTES % (AUTO) 12.4 % (1.7-9.3); NEUTROPHILS # (AUTO) 3.1 K/uL (1.8-7.7); NEUTROPHILS % (AUTO) 65.7 % (40.0-70.0); PLATELET COUNT (AUTO) 173 K/uL (130-430); RED BLOOD CELL COUNT(AUTO) 3.34 MIL/uL (4.2-6.2); RED CELL DISTRIBUTION WIDTH 15.2 % (9.0-15.0); WHITE BLOOD COUNT (AUTO) 4.8 K/uL (4.8-10.8)
[2018-06-21 07:41] LABS: UREA NITROGEN, BLOOD 37 mg/dL (8-21)
[2018-06-21 08:00] VITALS: BP_SYST 109
[2018-06-21] MEDS: CARVEDILOL 3.125 MG TABLET (COREG) PO SCH ×3 (09:00→21:00)
[2018-06-21] MEDS: FUROSEMIDE 40 MG/4 ML VIAL IVP SCH ×2 (10:16→22:14)
[2018-06-21] MEDS: OMEPRAZOLE 20 MG CAPSULE.DR (PriLOSEC) PO SCH (10:38)
[2018-06-21] MEDS: FAMOTIDINE 20 MG TABLET PO SCH (10:41)
[2018-06-21] MEDS: METOLAZONE 5 MG TABLET PO SCH ×2 (10:41→22:15)
[2018-06-21] MEDS: busPIRone HCL 5 MG TABLET PO SCH ×2 (10:42→22:14)
[2018-06-21] MEDS: DONEPEZIL HCL 5 MG TABLET (ARICEPT) PO SCH (10:42)
[2018-06-21] MEDS: DILTIAZEM HCL 30 MG TABLET PO SCH ×3 (10:42→21:00)
[2018-06-21 12:00] VITALS: BP_SYST 98
[2018-06-21] MEDS ORDERED: POTASSIUM CHLORIDE 20 MEQ TAB.PRT.SR PO ONE ×2 (13:00→18:45)
[2018-06-21 15:48] VITALS: BP_SYST 97
[2018-06-21 20:00] VITALS: BP_SYST 103
[2018-06-21] MEDS: DIGOXIN 0.125 MG TABLET PO SCH (21:00)
[2018-06-22 00:26] VITALS: BP_SYST 104
[2018-06-22 06:58] LABS: BASOPHILS % (AUTO) 0.6 % (0.0-2.0); EOSINOPHILS # (AUTO) 0.2 K/uL (0.0-0.4); EOSINOPHILS % (AUTO) 3.6 % (0.0-4.0); HEMATOCRIT 31.8 % (36-54); HEMOGLOBIN 10.4 g/dL (14.0-18.0); LYMPHOCYTES # (AUTO) 1.1 K/uL (1.0-5.5); LYMPHOCYTES % (AUTO) 21.4 % (20.5-51.5); MEAN CORPUSCULAR HEMOGLOBIN 30 pg (27-31); MEAN CORPUSCULAR HGB CONC 33 % (32-36); MEAN CORPUSCULAR VOLUME 91 fL (79.0-98.0); MONOCYTES # (AUTO) 0.6 K/uL (0.0-1.0); MONOCYTES % (AUTO) 12.3 % (1.7-9.3); NEUTROPHILS # (AUTO) 3.2 K/uL (1.8-7.7); NEUTROPHILS % (AUTO) 62.1 % (40.0-70.0); PLATELET COUNT (AUTO) 192 K/uL (130-430); RED BLOOD CELL COUNT(AUTO) 3.49 MIL/uL (4.2-6.2); RED CELL DISTRIBUTION WIDTH 15.9 % (9.0-15.0); WHITE BLOOD COUNT (AUTO) 5.1 K/uL (4.8-10.8)
[2018-06-22 07:08] LABS: ANION GAP 2 (5-15); CALCIUM 9.2 mg/dL (8.4-11.0); CHLORIDE 93 mmol/L (98-107); GLUCOSE 95 mg/dL (70-99); POTASSIUM 3.3 mmol/L (3.5-5.1); SODIUM SERUM 132 mmol/L (136-145); UREA NITROGEN, BLOOD 36 mg/dL (8-21)
[2018-06-22 07:27] LABS: ALANINE AMINOTRANSFERASE 7 U/L (12-78); ALBUMIN 3.7 g/dL (3.4-4.8); ASPARTATE AMINOTRANSFERASE 15 U/L (10-37); THYROID STIMULATING HORMONE 2.29 uIu/mL (0.36-3.74); TOTAL BILIRUBIN 0.8 mg/dL (0.0-1.0)
[2018-06-22 08:00] VITALS: BP_SYST 112
[2018-06-22] MEDS ORDERED: POTASSIUM CHLORIDE 20 MEQ TAB.PRT.SR PO ONE (08:15)
[2018-06-22] MEDS: FUROSEMIDE 40 MG/4 ML VIAL IVP SCH (09:00)
[2018-06-22] MEDS: METOLAZONE 5 MG TABLET PO SCH (09:00)
[2018-06-22] MEDS: CARVEDILOL 3.125 MG TABLET (COREG) PO SCH (09:00)
[2018-06-22] MEDS: DILTIAZEM HCL 30 MG TABLET PO SCH (09:00)
[2018-06-22] MEDS: OMEPRAZOLE 20 MG CAPSULE.DR (PriLOSEC) PO SCH (10:10)
[2018-06-22] MEDS: DONEPEZIL HCL 5 MG TABLET (ARICEPT) PO SCH (10:10)
[2018-06-22] MEDS: busPIRone HCL 5 MG TABLET PO SCH (10:11)
[2018-06-22] MEDS: FAMOTIDINE 20 MG TABLET PO SCH (10:11)
[2018-06-22 12:02] VITALS: BP_SYST 109
[2018-06-22 14:12] VITALS: BP_SYST 109
== END 2018-06-22 15:35 | disposition home health service (06) | DRG 432 ==
LOC: SMU 15:17 → STU 16:37
PROVIDERS: ADMIT Internal Medicine; ATTEND Internal Medicine
PROC: 0W9G3ZZ Drainage of Peritoneal Cavity, Percutaneous Approach (ICD-10-PCS; principal; 2018-06-20)
DX: K74.60 Unspecified cirrhosis of liver (principal); I50.43 Acute on chronic combined systolic (congestive) and diastolic (congestive) heart failure; E43 Unspecified severe protein-calorie malnutrition; I13.0 Hypertensive heart and chronic kidney disease with heart failure and stage 1 through stage 4 chronic kidney disease, or unspecified chronic kidney disease; R18.8 Other ascites; E87.1 Hypo-osmolality and hyponatremia; D64.9 Anemia, unspecified; F41.9 Anxiety disorder, unspecified; F03.90 Unspecified dementia, unspecified severity, without behavioral disturbance, psychotic disturbance, mood disturbance, and anxiety; N18.9 Chronic kidney disease, unspecified; I48.91 Unspecified atrial fibrillation; Z68.22 Body mass index [BMI] 22.0-22.9, adult
CPT/HCPCS: 36415; 49083; 71045; 80048; 80053; 83540-TC; 83550-TC; 83880; 84443-TC; 85025; 85610-TC; 85730-TC; 97535-GP; C1729; J1940; J2001

== ENCOUNTER 2018-07-13 12:40 | Inpatient (IN) | payer OTHER ==
[~2018-07-13] VITALS: Ht 162.6 cm; Wt 68.5 kg
[~2018-07-13 12:40] MED LIST changes: +OMEP-268 PO
[2018-07-13 15:14] VITALS: BP_SYST 109
[2018-07-13] MEDS ORDERED: LOSA25TA3 PO (15:31)
[2018-07-13] MEDS: NORMAL SALINE 5 ML DISP.SYRIN IVF SCH ×2 (16:00→21:40)
[2018-07-13 16:19] LABS: ANION GAP 4 (5-15); CALCIUM 8.6 mg/dL (8.4-11.0); CHLORIDE 99 mmol/L (98-107); CREATININE 1.87 mg/dL (0.55-1.30); GLUCOSE 92 mg/dL (70-99); POTASSIUM 4.2 mmol/L (3.5-5.1); SODIUM SERUM 132 mmol/L (136-145); UREA NITROGEN, BLOOD 41 mg/dL (8-21)
[2018-07-13 16:21] LABS: BASOPHILS % (AUTO) 0.5 % (0.0-2.0); EOSINOPHILS # (AUTO) 0.1 K/uL (0.0-0.4); EOSINOPHILS % (AUTO) 1.8 % (0.0-4.0); HEMATOCRIT 27.6 % (36-54); HEMOGLOBIN 9.2 g/dL (14.0-18.0); LYMPHOCYTES # (AUTO) 0.6 K/uL (1.0-5.5); LYMPHOCYTES % (AUTO) 11.6 % (20.5-51.5); MEAN CORPUSCULAR HEMOGLOBIN 30 pg (27-31); MEAN CORPUSCULAR HGB CONC 34 % (32-36); MEAN CORPUSCULAR VOLUME 91 fL (79.0-98.0); MONOCYTES # (AUTO) 0.5 K/uL (0.0-1.0); NEUTROPHILS # (AUTO) 3.7 K/uL (1.8-7.7); NEUTROPHILS % (AUTO) 75.1 % (40.0-70.0); PLATELET COUNT (AUTO) 166 K/uL (130-430); RED BLOOD CELL COUNT(AUTO) 3.04 MIL/uL (4.2-6.2); RED CELL DISTRIBUTION WIDTH 14.6 % (9.0-15.0); WHITE BLOOD COUNT (AUTO) 4.9 K/uL (4.8-10.8)
[2018-07-13 16:22] LABS: INR 1.2 (0.80-1.20); PROTHROMBIN TIME 12.4 SECS (9.5-12.5)
[2018-07-13 16:25] VITALS: BP_SYST 109
[2018-07-13 16:25] LABS: ALANINE AMINOTRANSFERASE 14 U/L (12-78); ALBUMIN 3.7 g/dL (3.4-4.8); ASPARTATE AMINOTRANSFERASE 17 U/L (10-37); TOTAL BILIRUBIN 0.8 mg/dL (0.0-1.0)
[2018-07-13] MEDS ORDERED: FUROSEMIDE 40 MG/4 ML VIAL IVP ONE (16:45)
[2018-07-13] MEDS ORDERED: FUROSEMIDE 100 MG in D5W 90 ML IV SCH (18:00)
[2018-07-13 20:11] VITALS: BP_SYST 111
[2018-07-13] MEDS: busPIRone HCL 5 MG TABLET PO SCH (20:13)
[2018-07-13] MEDS: DILTIAZEM HCL 30 MG TABLET PO SCH (20:14)
[2018-07-13] MEDS ORDERED: FUROSEMIDE 40 MG/4 ML VIAL IVP SCH (21:00)
[2018-07-13] MEDS ORDERED: RIOCIGUAT 2.5 MG PO SCH (21:00)
[2018-07-13] MEDS: CARVEDILOL 3.125 MG TABLET (COREG) PO SCH (21:00)
[2018-07-14] VITALS (7 sets, daily range): BP systolic 74–116
[2018-07-14] MEDS: NORMAL SALINE 5 ML DISP.SYRIN IVF SCH ×3 (06:00→22:28)
[2018-07-14 06:55] LABS: BASOPHILS % (AUTO) 0.9 % (0.0-2.0); EOSINOPHILS # (AUTO) 0.1 K/uL (0.0-0.4); EOSINOPHILS % (AUTO) 2.9 % (0.0-4.0); HEMATOCRIT 27.8 % (36-54); HEMOGLOBIN 9.2 g/dL (14.0-18.0); LYMPHOCYTES # (AUTO) 0.9 K/uL (1.0-5.5); LYMPHOCYTES % (AUTO) 19.6 % (20.5-51.5); MEAN CORPUSCULAR HEMOGLOBIN 30 pg (27-31); MEAN CORPUSCULAR HGB CONC 33 % (32-36); MEAN CORPUSCULAR VOLUME 90 fL (79.0-98.0); MONOCYTES # (AUTO) 0.6 K/uL (0.0-1.0); MONOCYTES % (AUTO) 12.2 % (1.7-9.3); NEUTROPHILS # (AUTO) 2.9 K/uL (1.8-7.7); NEUTROPHILS % (AUTO) 64.4 % (40.0-70.0); PLATELET COUNT (AUTO) 172 K/uL (130-430); RED BLOOD CELL COUNT(AUTO) 3.09 MIL/uL (4.2-6.2); RED CELL DISTRIBUTION WIDTH 14.6 % (9.0-15.0); WHITE BLOOD COUNT (AUTO) 4.5 K/uL (4.8-10.8)
[2018-07-14 07:13] LABS: ANION GAP 5 (5-15); CALCIUM 8.6 mg/dL (8.4-11.0); CHLORIDE 99 mmol/L (98-107); CREATININE 1.78 mg/dL (0.55-1.30); GLUCOSE 83 mg/dL (70-99); POTASSIUM 3.6 mmol/L (3.5-5.1); SODIUM SERUM 134 mmol/L (136-145); UREA NITROGEN, BLOOD 41 mg/dL (8-21)
[2018-07-14 08:27] LABS: TOTAL IRON BIND. CAPACITY 289 ug/dL (250-450)
[2018-07-14] MEDS: DIGOXIN 0.125 MG TABLET PO SCH (09:00)
[2018-07-14] MEDS ORDERED: LOSARTAN POTASSIUM 25 MG TABLET PO SCH (09:00)
[2018-07-14] MEDS: METOLAZONE 2.5 MG TABLET PO SCH (09:21)
[2018-07-14] MEDS: FAMOTIDINE 20 MG TABLET PO SCH (09:22)
[2018-07-14] MEDS: DONEPEZIL HCL 5 MG TABLET (ARICEPT) PO SCH (09:22)
[2018-07-14] MEDS: DILTIAZEM HCL 30 MG TABLET PO SCH ×2 (09:22→21:00)
[2018-07-14] MEDS: busPIRone HCL 5 MG TABLET PO SCH ×2 (09:22→21:48)
[2018-07-14] MEDS: OMEPRAZOLE 20 MG CAPSULE.DR (PriLOSEC) PO SCH (09:22)
[2018-07-14] MEDS: CARVEDILOL 3.125 MG TABLET (COREG) PO SCH ×2 (09:23→21:00)
[2018-07-14] MEDS ORDERED: NS 250 ML IV ONE (12:45)
[2018-07-14 14:05] LABS: BF APPEARANCE UNSPUN HAZY (CLEAR); BODY FLUID SOURCE/ TYPE ASCITES; SOURCE/TYPE ,BODY FLUID PARACENTESIS
[2018-07-14 14:06] LABS: APPEARANCE,SPUN,BODY FLUID HAZY (CLEAR); BODY FLUID COLOR YELLOW (LT YELLOW); BODY FLUID TOTAL VOLUME 4290 mL; MONOCYTES,BODY FLUID 98 %; NEUTROPHIL, BODY FLUID 2 %; RBC, BODY FLUID 1472 /uL; WBC, BODY FLUID 74 /uL
[2018-07-14 16:42] LABS: BODY FLUID GLUCOSE 98 mg/dL
[2018-07-14 16:43] LABS: BODY FLUID TOTAL PROTEIN 4.1 g/dL
[2018-07-15 02:15] VITALS: BP_SYST 93
[2018-07-15 07:02] LABS: BASOPHILS % (AUTO) 1.1 % (0.0-2.0); EOSINOPHILS # (AUTO) 0.1 K/uL (0.0-0.4); EOSINOPHILS % (AUTO) 3.4 % (0.0-4.0); HEMATOCRIT 26.5 % (36-54); HEMOGLOBIN 8.7 g/dL (14.0-18.0); LYMPHOCYTES # (AUTO) 0.8 K/uL (1.0-5.5); LYMPHOCYTES % (AUTO) 21.2 % (20.5-51.5); MEAN CORPUSCULAR HEMOGLOBIN 29 pg (27-31); MEAN CORPUSCULAR HGB CONC 33 % (32-36); MONOCYTES # (AUTO) 0.6 K/uL (0.0-1.0); MONOCYTES % (AUTO) 14.2 % (1.7-9.3); NEUTROPHILS # (AUTO) 2.4 K/uL (1.8-7.7); NEUTROPHILS % (AUTO) 60.1 % (40.0-70.0); PLATELET COUNT (AUTO) 151 K/uL (130-430); RED BLOOD CELL COUNT(AUTO) 3.02 MIL/uL (4.2-6.2); RED CELL DISTRIBUTION WIDTH 14.5 % (9.0-15.0); WHITE BLOOD COUNT (AUTO) 3.9 K/uL (4.8-10.8)
[2018-07-15 07:13] LABS: ANION GAP 6 (5-15); CALCIUM 8.2 mg/dL (8.4-11.0); CHLORIDE 98 mmol/L (98-107); CREATININE 1.73 mg/dL (0.55-1.30); GLUCOSE 89 mg/dL (70-99); POTASSIUM 3.2 mmol/L (3.5-5.1); SODIUM SERUM 134 mmol/L (136-145); UREA NITROGEN, BLOOD 43 mg/dL (8-21)
[2018-07-15 07:18] LABS: MEAN CORPUSCULAR VOLUME 88 fL (79.0-98.0)
[2018-07-15] MEDS: NORMAL SALINE 5 ML DISP.SYRIN IVF SCH ×3 (07:29→22:31)
[2018-07-15 08:00] VITALS: BP_SYST 91
[2018-07-15] MEDS: busPIRone HCL 5 MG TABLET PO SCH ×2 (08:52→20:47)
[2018-07-15] MEDS: OMEPRAZOLE 20 MG CAPSULE.DR (PriLOSEC) PO SCH (08:53)
[2018-07-15] MEDS: FAMOTIDINE 20 MG TABLET PO SCH (08:53)
[2018-07-15] MEDS: DONEPEZIL HCL 5 MG TABLET (ARICEPT) PO SCH (08:53)
[2018-07-15] MEDS: DILTIAZEM HCL 30 MG TABLET PO SCH ×2 (09:00→21:00)
[2018-07-15] MEDS: CARVEDILOL 3.125 MG TABLET (COREG) PO SCH ×2 (09:00→21:00)
[2018-07-15 09:21] LABS: HEPATITIS A AB, IgM Negative (Negative); HEPATITIS B CORE AB, IgM Negative (Negative); HEPATITIS B SURFACE AG Negative (Negative)
[2018-07-15] MEDS: DIGOXIN 0.125 MG TABLET PO SCH (10:41)
[2018-07-15] MEDS: METOLAZONE 2.5 MG TABLET PO SCH (10:42)
[2018-07-15] MEDS ORDERED: POTASSIUM CHLORIDE 20 MEQ/PKT PACKET PO ONE (11:15)
[2018-07-15 12:00] VITALS: BP_SYST 95
[2018-07-15 15:47] VITALS: BP_SYST 106
[2018-07-16] VITALS: BP_SYST 93
[2018-07-16] MEDS: NORMAL SALINE 5 ML DISP.SYRIN IVF SCH ×2 (06:34→14:26)
[2018-07-16 07:19] LABS: BASOPHILS # (AUTO) 0.1 K/uL (0.0-0.2); BASOPHILS % (AUTO) 1.1 % (0.0-2.0); EOSINOPHILS # (AUTO) 0.2 K/uL (0.0-0.4); EOSINOPHILS % (AUTO) 4.5 % (0.0-4.0); HEMATOCRIT 29.6 % (36-54); HEMOGLOBIN 9.7 g/dL (14.0-18.0); LYMPHOCYTES # (AUTO) 0.9 K/uL (1.0-5.5); MEAN CORPUSCULAR HEMOGLOBIN 30 pg (27-31); MEAN CORPUSCULAR HGB CONC 33 % (32-36); MEAN CORPUSCULAR VOLUME 91 fL (79.0-98.0); MONOCYTES # (AUTO) 0.6 K/uL (0.0-1.0); MONOCYTES % (AUTO) 12.3 % (1.7-9.3); NEUTROPHILS # (AUTO) 2.9 K/uL (1.8-7.7); NEUTROPHILS % (AUTO) 63.1 % (40.0-70.0); PLATELET COUNT (AUTO) 163 K/uL (130-430); RED BLOOD CELL COUNT(AUTO) 3.28 MIL/uL (4.2-6.2); RED CELL DISTRIBUTION WIDTH 14.4 % (9.0-15.0); WHITE BLOOD COUNT (AUTO) 4.7 K/uL (4.8-10.8)
[2018-07-16 07:27] LABS: ANION GAP 5 (5-15); CALCIUM 8.4 mg/dL (8.4-11.0); CHLORIDE 98 mmol/L (98-107); CREATININE 1.44 mg/dL (0.55-1.30); GLUCOSE 91 mg/dL (70-99); POTASSIUM 3.3 mmol/L (3.5-5.1); SODIUM SERUM 134 mmol/L (136-145); UREA NITROGEN, BLOOD 31 mg/dL (8-21)
[2018-07-16 07:49] VITALS: BP_SYST 93
[2018-07-16] MEDS: DILTIAZEM HCL 30 MG TABLET PO SCH (08:31)
[2018-07-16] MEDS: CARVEDILOL 3.125 MG TABLET (COREG) PO SCH (08:32)
[2018-07-16] MEDS: METOLAZONE 2.5 MG TABLET PO SCH (08:34)
[2018-07-16] MEDS: DIGOXIN 0.125 MG TABLET PO SCH (08:38)
[2018-07-16] MEDS: DONEPEZIL HCL 5 MG TABLET (ARICEPT) PO SCH (08:38)
[2018-07-16] MEDS: busPIRone HCL 5 MG TABLET PO SCH (08:38)
[2018-07-16] MEDS: FAMOTIDINE 20 MG TABLET PO SCH (08:39)
[2018-07-16] MEDS: OMEPRAZOLE 20 MG CAPSULE.DR (PriLOSEC) PO SCH (08:39)
[2018-07-16 12:02] VITALS: BP_SYST 99
[2018-07-16 16:16] VITALS: BP_SYST 119
[2018-07-16 18:51] VITALS: BP_SYST 100
[2018-07-17 02:05] LABS: FERRITIN 99 ng/mL (30-400)
[2018-07-17 06:09] LABS: AFP, TUMOR MARKER 1.8 ng/mL (0.0-8.3)
[2018-07-17 13:09] LABS: ANTI-SMOOTH MUSCLE AB 6 Units (0-19); LIVER-KIDNEY MICROSOMAL AB 1.9 Units (0.0-20.0)
[2018-07-19 01:08] LABS: ALPHA-1-ANTITRYPSIN, S 181 mg/dL (90-200); CERULOPLASMIN 25.9 mg/dL (16.0-31.0)
== END 2018-07-16 19:10 | disposition home health service (06) | DRG 432 ==
LOC: SMU 14:43 → STU 07-14 12:49
PROVIDERS: ADMIT Internal Medicine; ATTEND Internal Medicine
PROC: 0W9G3ZZ Drainage of Peritoneal Cavity, Percutaneous Approach (ICD-10-PCS; principal; 2018-07-14)
DX: K74.60 Unspecified cirrhosis of liver (principal); N17.0 Acute kidney failure with tubular necrosis; I50.23 Acute on chronic systolic (congestive) heart failure; I13.0 Hypertensive heart and chronic kidney disease with heart failure and stage 1 through stage 4 chronic kidney disease, or unspecified chronic kidney disease; R18.8 Other ascites; N18.9 Chronic kidney disease, unspecified; F03.90 Unspecified dementia, unspecified severity, without behavioral disturbance, psychotic disturbance, mood disturbance, and anxiety; I48.91 Unspecified atrial fibrillation; D64.9 Anemia, unspecified; Z79.899 Other long term (current) drug therapy
CPT/HCPCS: 36415; 49083; 76700-TC; 80048; 80053; 80074; 82042; 82103; 82105; 82390; 82728; 82947-TC; 83516; 83540-TC; 83550-TC; 84157-TC; 85025; 85610-TC; 85730-TC; 86376; 87081; 88108; 88305; 89051-TC; 89060-TC; 97110-GP; 97116-GP; 97530-GP; C1729; J1940; J7050; J7060

== ENCOUNTER 2018-08-30 17:41 | Inpatient (IN) | payer OTHER ==
[~2018-08-30] VITALS: Ht 162.6 cm; Wt 68.0 kg
[~2018-08-30 17:41] MED LIST changes: +LOSA25TA3 PO
[2018-08-30 18:14] VITALS: BP_SYST 105
[2018-08-30 19:40] VITALS: BP_SYST 109
[2018-08-30] MEDS ORDERED: RIOCIGUAT 2.5 MG PO SCH (21:00)
[2018-08-30] MEDS ORDERED: ENOXAPARIN SODIUM 30 MG/0.3 ML SYRINGE SUBCUT SCH (22:00)
[2018-08-30] MEDS: busPIRone HCL 5 MG TABLET PO SCH (22:01)
[2018-08-30] MEDS: DILTIAZEM HCL 30 MG TABLET PO SCH (22:02)
[2018-08-30] MEDS: CARVEDILOL 3.125 MG TABLET (COREG) PO SCH (22:03)
[2018-08-30] MEDS: FUROSEMIDE 40 MG/4 ML VIAL IVP SCH (22:03)
[2018-08-31 00:52] VITALS: BP_SYST 99
[2018-08-31 05:07] VITALS: BP_SYST 100
[2018-08-31 06:33] LABS: ANION GAP 7 (5-15); CALCIUM 8.6 mg/dL (8.4-11.0); CHLORIDE 102 mmol/L (98-107); CREATININE 1.75 mg/dL (0.55-1.30); GLUCOSE 90 mg/dL (70-99); POTASSIUM 3.6 mmol/L (3.5-5.1); SODIUM SERUM 139 mmol/L (136-145); UREA NITROGEN, BLOOD 36 mg/dL (8-21)
[2018-08-31 06:35] LABS: INR 1.3 (0.80-1.20); PROTHROMBIN TIME 12.7 SECS (9.5-12.5)
[2018-08-31 06:42] LABS: ALANINE AMINOTRANSFERASE 11 U/L (12-78); ALBUMIN 3.2 g/dL (3.4-4.8); ASPARTATE AMINOTRANSFERASE 17 U/L (10-37); TOTAL BILIRUBIN 0.6 mg/dL (0.0-1.0)
[2018-08-31 06:47] LABS: BASOPHILS % (AUTO) 0.8 % (0.0-2.0); EOSINOPHILS # (AUTO) 0.2 K/uL (0.0-0.4); EOSINOPHILS % (AUTO) 3.9 % (0.0-4.0); HEMOGLOBIN 9.2 g/dL (14.0-18.0); LYMPHOCYTES # (AUTO) 0.8 K/uL (1.0-5.5); LYMPHOCYTES % (AUTO) 17.1 % (20.5-51.5); MEAN CORPUSCULAR HEMOGLOBIN 28 pg (27-31); MEAN CORPUSCULAR HGB CONC 32 % (32-36); MEAN CORPUSCULAR VOLUME 89 fL (79.0-98.0); MONOCYTES # (AUTO) 0.6 K/uL (0.0-1.0); MONOCYTES % (AUTO) 12.7 % (1.7-9.3); NEUTROPHILS # (AUTO) 2.9 K/uL (1.8-7.7); NEUTROPHILS % (AUTO) 65.5 % (40.0-70.0); PLATELET COUNT (AUTO) 181 K/uL (130-430); RED BLOOD CELL COUNT(AUTO) 3.25 MIL/uL (4.2-6.2); WHITE BLOOD COUNT (AUTO) 4.5 K/uL (4.8-10.8)
[2018-08-31] MEDS ORDERED: NON-FORMULARY MEDICATION (Omeprazole 20 MG) PO SCH (09:00)
[2018-08-31] MEDS ORDERED: DONEPEZIL HCL 5 MG PO SCH (09:00)
[2018-08-31] MEDS: DIGOXIN 0.125 MG TABLET PO SCH (09:22)
[2018-08-31] MEDS: DONEPEZIL HCL 5 MG TABLET (ARICEPT) PO SCH (09:23)
[2018-08-31] MEDS: FAMOTIDINE 20 MG TABLET PO SCH (09:23)
[2018-08-31] MEDS: busPIRone HCL 5 MG TABLET PO SCH ×2 (09:23→21:45)
[2018-08-31] MEDS: PANTOPRAZOLE SODIUM 40 MG TAB PO SCH (09:23)
[2018-08-31] MEDS: DILTIAZEM HCL 30 MG TABLET PO SCH ×2 (09:24→21:46)
[2018-08-31] MEDS: FUROSEMIDE 40 MG/4 ML VIAL IVP SCH ×2 (09:24→21:46)
[2018-08-31] MEDS: CARVEDILOL 3.125 MG TABLET (COREG) PO SCH ×2 (09:25→21:46)
[2018-08-31 12:47] VITALS: BP_SYST 90
[2018-08-31 17:21] VITALS: BP_SYST 93
[2018-08-31 20:00] VITALS: BP_SYST 108
[2018-08-31] MEDS ORDERED: ENOXAPARIN SODIUM 30 MG/0.3 ML SYRINGE SUBCUT SCH (21:00)
[2018-09-01 01:15] VITALS: BP_SYST 102
[2018-09-01 07:15] LABS: BASOPHILS % (AUTO) 0.6 % (0.0-2.0); EOSINOPHILS # (AUTO) 0.2 K/uL (0.0-0.4); EOSINOPHILS % (AUTO) 4.9 % (0.0-4.0); HEMATOCRIT 31.2 % (36-54); HEMOGLOBIN 9.7 g/dL (14.0-18.0); LYMPHOCYTES % (AUTO) 21.2 % (20.5-51.5); MEAN CORPUSCULAR HEMOGLOBIN 28 pg (27-31); MEAN CORPUSCULAR HGB CONC 31 % (32-36); MEAN CORPUSCULAR VOLUME 88 fL (79.0-98.0); MONOCYTES # (AUTO) 0.6 K/uL (0.0-1.0); MONOCYTES % (AUTO) 12.9 % (1.7-9.3); NEUTROPHILS # (AUTO) 3.1 K/uL (1.8-7.7); NEUTROPHILS % (AUTO) 60.4 % (40.0-70.0); PLATELET COUNT (AUTO) 174 K/uL (130-430); RED BLOOD CELL COUNT(AUTO) 3.55 MIL/uL (4.2-6.2); RED CELL DISTRIBUTION WIDTH 15.2 % (9.0-15.0); WHITE BLOOD COUNT (AUTO) 4.9 K/uL (4.8-10.8)
[2018-09-01 07:16] LABS: ANION GAP 4 (5-15); CALCIUM 8.3 mg/dL (8.4-11.0); CHLORIDE 102 mmol/L (98-107); CREATININE 1.62 mg/dL (0.55-1.30); GLUCOSE 87 mg/dL (70-99); POTASSIUM 3.6 mmol/L (3.5-5.1); SODIUM SERUM 139 mmol/L (136-145); UREA NITROGEN, BLOOD 32 mg/dL (8-21)
[2018-09-01 08:08] VITALS: BP_SYST 100
[2018-09-01] MEDS: DIGOXIN 0.125 MG TABLET PO SCH (09:00)
[2018-09-01] MEDS: CARVEDILOL 3.125 MG TABLET (COREG) PO SCH (09:00)
[2018-09-01] MEDS: DILTIAZEM HCL 30 MG TABLET PO SCH (09:00)
[2018-09-01] MEDS: FUROSEMIDE 40 MG/4 ML VIAL IVP SCH (09:07)
[2018-09-01] MEDS: FAMOTIDINE 20 MG TABLET PO SCH (09:08)
[2018-09-01] MEDS: busPIRone HCL 5 MG TABLET PO SCH (09:08)
[2018-09-01] MEDS: DONEPEZIL HCL 5 MG TABLET (ARICEPT) PO SCH (09:08)
[2018-09-01] MEDS: PANTOPRAZOLE SODIUM 40 MG TAB PO SCH (09:08)
[2018-09-01 11:23] VITALS: BP_SYST 100
== END 2018-09-01 11:55 | disposition home health service (06) | DRG 433 ==
LOC: SMU 17:52
PROVIDERS: ADMIT Internal Medicine; ATTEND Internal Medicine
PROC: 0W9G3ZZ Drainage of Peritoneal Cavity, Percutaneous Approach (ICD-10-PCS; principal; 2018-08-31)
DX: K74.60 Unspecified cirrhosis of liver (principal); I13.0 Hypertensive heart and chronic kidney disease with heart failure and stage 1 through stage 4 chronic kidney disease, or unspecified chronic kidney disease; R18.8 Other ascites; I50.20 Unspecified systolic (congestive) heart failure; N18.9 Chronic kidney disease, unspecified; D64.9 Anemia, unspecified; F03.90 Unspecified dementia, unspecified severity, without behavioral disturbance, psychotic disturbance, mood disturbance, and anxiety; I48.91 Unspecified atrial fibrillation; Z79.899 Other long term (current) drug therapy
CPT/HCPCS: 36415; 49083; 80048; 80053; 85025; 85610-TC; 85730-TC; 97116-GP; 97530-GP; C1729; J1650; J1940

== ENCOUNTER 2018-09-21 07:56 | Day surgery (SDC) | payer OTHER ==
[~2018-09-21] VITALS: Ht 160 cm; Wt 68.0 kg
[~2018-09-21 07:56] MED LIST changes: -LOSA25TA3 PO
[2018-09-21] MEDS ORDERED: LIDOCAINE 1%, 20 ML MDV 20 ML ONE (08:34)
[2018-09-21 10:59] VITALS: BP_SYST 101
== END 2018-09-21 12:30 | disposition home or self-care (01) ==
LOC: SDS 07:56
PROVIDERS: ATTEND Internal Medicine
DX: R18.8 Other ascites (principal); K76.9 Liver disease, unspecified; Z98.890 Other specified postprocedural states; Z79.899 Other long term (current) drug therapy
CPT/HCPCS: 49083; C1729; J2001

== ENCOUNTER 2018-10-08 15:11 | Day surgery (SDC) | payer OTHER ==
[~2018-10-08 15:11] MED LIST changes: +LIDOCAINE 1%, 20 ML MDV 20 ML ONE
[2018-10-08 19:10] VITALS: BP_SYST 106
== END 2018-10-08 17:50 | disposition home or self-care (01) ==
LOC: SDS 15:11
PROVIDERS: ATTEND Specialist
DX: R18.8 Other ascites (principal); K70.9 Alcoholic liver disease, unspecified
CPT/HCPCS: 49083; C1729; G0378; J2001

== ENCOUNTER 2018-10-21 21:10 | Inpatient (IN) | payer OTHER ==
[~2018-10-21] VITALS: Ht 152.4 cm; Wt 70.4 kg
[2018-10-21 21:10] VITALS: BP_SYST 136
[~2018-10-21 21:10] MED LIST changes: -LIDOCAINE 1%, 20 ML MDV 20 ML ONE
[2018-10-21 22:20] LABS: BASOPHILS % (AUTO) 0.4 % (0.0-2.0); EOSINOPHILS # (AUTO) 0.1 K/uL (0.0-0.4); EOSINOPHILS % (AUTO) 2.1 % (0.0-4.0); HEMATOCRIT 30.1 % (36-54); HEMOGLOBIN 9.5 g/dL (14.0-18.0); LYMPHOCYTES # (AUTO) 0.5 K/uL (1.0-5.5); MEAN CORPUSCULAR HEMOGLOBIN 28 pg (27-31); MEAN CORPUSCULAR HGB CONC 31 % (32-36); MEAN CORPUSCULAR VOLUME 89 fL (79.0-98.0); MONOCYTES # (AUTO) 0.6 K/uL (0.0-1.0); MONOCYTES % (AUTO) 11.5 % (1.7-9.3); NEUTROPHILS # (AUTO) 3.6 K/uL (1.8-7.7); PLATELET COUNT (AUTO) 197 K/uL (130-430); RED BLOOD CELL COUNT(AUTO) 3.39 MIL/uL (4.2-6.2); RED CELL DISTRIBUTION WIDTH 16.6 % (9.0-15.0); WHITE BLOOD COUNT (AUTO) 4.8 K/uL (4.8-10.8)
[2018-10-21 22:29] LABS: ANION GAP 6 (5-15); CALCIUM 8.5 mg/dL (8.4-11.0); CHLORIDE 98 mmol/L (98-107); CREATININE 1.66 mg/dL (0.55-1.30); GLUCOSE 87 mg/dL (70-99); POTASSIUM 4.4 mmol/L (3.5-5.1); SODIUM SERUM 135 mmol/L (136-145); UREA NITROGEN, BLOOD 27 mg/dL (8-21)
[2018-10-21 22:33] LABS: INR 1.2 (0.80-1.20); PROTHROMBIN TIME 11.8 SECS (9.5-12.5)
[2018-10-21 22:35] LABS: ALANINE AMINOTRANSFERASE 12 U/L (12-78); ALBUMIN 3.3 g/dL (3.4-4.8); ASPARTATE AMINOTRANSFERASE 18 U/L (10-37); TOTAL BILIRUBIN 0.7 mg/dL (0.0-1.0)
[2018-10-21 22:49] LABS: BILIRUBIN,URINE NEGATIVE (NEGATIVE); BLOOD, URINE NEGATIVE (NEGATIVE); CLARITY/URINE HAZY (CLEAR); COLOR,URINE YELLOW (YELLOW); GLUCOSE,URINE NEGATIVE (NEGATIVE); KETONES,URINE NEGATIVE (NEGATIVE); LEUKOCYTE ESTERASE ,URINE NEGATIVE (NEGATIVE); NITRITE, URINE NEGATIVE (NEGATIVE); PROTEIN URINE NEGATIVE (NEGATIVE); UROBILINOGEN,URINE 0.2 (0.2-1.0)
[2018-10-22 01:26] VITALS: BP_SYST 109
[2018-10-22] MEDS: FUROSEMIDE 20 MG/2 ML VIAL IVP SCH ×2 (01:36→14:26)
[2018-10-22 08:10] VITALS: BP_SYST 135; BP_SYST 94
[2018-10-22] MEDS ORDERED: RIOCIGUAT 2.5 MG PO SCH (09:00)
[2018-10-22] MEDS: DIGOXIN 0.125 MG TABLET PO SCH (09:33)
[2018-10-22] MEDS: FAMOTIDINE 20 MG TABLET PO SCH (09:34)
[2018-10-22] MEDS: OMEPRAZOLE 20 MG CAPSULE.DR (PriLOSEC) PO SCH (09:34)
[2018-10-22] MEDS: CARVEDILOL 3.125 MG TABLET (COREG) PO SCH ×2 (09:34→21:45)
[2018-10-22] MEDS: busPIRone HCL 5 MG TABLET PO SCH ×2 (09:34→21:44)
[2018-10-22] MEDS: DILTIAZEM HCL 30 MG TABLET PO SCH ×2 (09:35→21:47)
[2018-10-22] MEDS: DONEPEZIL HCL 5 MG TABLET (ARICEPT) PO SCH (11:00)
[2018-10-22 12:00] VITALS: BP_SYST 103
[2018-10-22] MEDS ORDERED: DONEPEZIL HCL 5 MG TABLET (ARICEPT) PO ONE (12:15)
[2018-10-22 14:28] VITALS: BP_SYST 96
[2018-10-22 17:24] VITALS: BP_SYST 104
[2018-10-22] MEDS ORDERED: QUEtiapine FUMARATE 25 MG TABLET PO ONE (23:00)
[2018-10-22 23:26] VITALS: BP_SYST 110
[2018-10-23] VITALS: BP_SYST 107
[2018-10-23 04:00] VITALS: BP_SYST 112
[2018-10-23] MEDS: FUROSEMIDE 20 MG/2 ML VIAL IVP SCH ×2 (06:52→18:00)
[2018-10-23 07:30] VITALS: BP_SYST 119
[2018-10-23 07:52] LABS: BASOPHILS % (AUTO) 0.6 % (0.0-2.0); EOSINOPHILS # (AUTO) 0.1 K/uL (0.0-0.4); EOSINOPHILS % (AUTO) 2.3 % (0.0-4.0); HEMATOCRIT 29.6 % (36-54); HEMOGLOBIN 9.8 g/dL (14.0-18.0); LYMPHOCYTES # (AUTO) 0.7 K/uL (1.0-5.5); LYMPHOCYTES % (AUTO) 15.3 % (20.5-51.5); MEAN CORPUSCULAR HEMOGLOBIN 29 pg (27-31); MEAN CORPUSCULAR HGB CONC 33 % (32-36); MEAN CORPUSCULAR VOLUME 86 fL (79.0-98.0); MONOCYTES # (AUTO) 0.6 K/uL (0.0-1.0); MONOCYTES % (AUTO) 12.1 % (1.7-9.3); NEUTROPHILS # (AUTO) 3.4 K/uL (1.8-7.7); NEUTROPHILS % (AUTO) 69.7 % (40.0-70.0); PLATELET COUNT (AUTO) 172 K/uL (130-430); RED BLOOD CELL COUNT(AUTO) 3.42 MIL/uL (4.2-6.2); RED CELL DISTRIBUTION WIDTH 16.2 % (9.0-15.0); WHITE BLOOD COUNT (AUTO) 4.8 K/uL (4.8-10.8)
[2018-10-23] MEDS: DILTIAZEM HCL 30 MG TABLET PO SCH ×2 (08:36→20:45)
[2018-10-23] MEDS: FAMOTIDINE 20 MG TABLET PO SCH (08:36)
[2018-10-23] MEDS: DONEPEZIL HCL 5 MG TABLET (ARICEPT) PO SCH (08:36)
[2018-10-23] MEDS: OMEPRAZOLE 20 MG CAPSULE.DR (PriLOSEC) PO SCH (08:36)
[2018-10-23] MEDS: DIGOXIN 0.125 MG TABLET PO SCH (08:37)
[2018-10-23] MEDS: busPIRone HCL 5 MG TABLET PO SCH ×2 (08:37→20:44)
[2018-10-23] MEDS: CARVEDILOL 3.125 MG TABLET (COREG) PO SCH ×2 (08:37→20:45)
[2018-10-23 08:46] LABS: ALANINE AMINOTRANSFERASE 12 U/L (12-78); ASPARTATE AMINOTRANSFERASE 14 U/L (10-37); CREATININE 1.54 mg/dL (0.55-1.30); GLUCOSE 96 mg/dL (70-99); TOTAL BILIRUBIN 0.7 mg/dL (0.0-1.0); UREA NITROGEN, BLOOD 31 mg/dL (8-21)
[2018-10-23 09:05] LABS: ANION GAP 8 (5-15); CHLORIDE 100 mmol/L (98-107); POTASSIUM 3.9 mmol/L (3.5-5.1); SODIUM SERUM 136 mmol/L (136-145)
[2018-10-23] MEDS ORDERED: BRIM15DR8 OP (10:37)
[2018-10-23] MEDS ORDERED: BIMA2.5D5 OP (10:37)
[2018-10-23] MEDS ORDERED: COMMUNICATION ORDER XX ONE (10:45)
[2018-10-23 12:02] VITALS: BP_SYST 92
[2018-10-23] MEDS ORDERED: LIDOCAINE 1%, 20 ML MDV 0 ML ONE (13:30)
[2018-10-23] MEDS: BRIMONIDINE TARTRATE 0.2% 5 mL EYE DROPS OP SCH ×2 (15:50→20:44)
[2018-10-23] MEDS ORDERED: QUEtiapine FUMARATE 25 MG TABLET PO ONE (18:00)
[2018-10-23] MEDS: QUEtiapine FUMARATE 25 MG TABLET PO SCH (18:15)
[2018-10-23 20:00] VITALS: BP_SYST 119
[2018-10-23] MEDS: LATANOPROST 2.5 ML DROPS (XALATAN) OP SCH (20:44)
[2018-10-23] MEDS ORDERED: QUEtiapine FUMARATE 25 MG TABLET PO SCH (21:00)
[2018-10-24] VITALS (10 sets, daily range): BP systolic 85–105
[2018-10-24] MEDS: FUROSEMIDE 20 MG/2 ML VIAL IVP SCH ×2 (06:14→18:00)
[2018-10-24 07:54] LABS: ANION GAP 6 (5-15); CALCIUM 8.1 mg/dL (8.4-11.0); CHLORIDE 100 mmol/L (98-107); CREATININE 1.62 mg/dL (0.55-1.30); GLUCOSE 86 mg/dL (70-99); POTASSIUM 3.9 mmol/L (3.5-5.1); SODIUM SERUM 135 mmol/L (136-145); UREA NITROGEN, BLOOD 32 mg/dL (8-21)
[2018-10-24] MEDS ORDERED: QUEtiapine FUMARATE 25 MG TABLET PO SCH (09:00)
[2018-10-24] MEDS: CARVEDILOL 3.125 MG TABLET (COREG) PO SCH ×2 (09:00→21:00)
[2018-10-24] MEDS: DIGOXIN 0.125 MG TABLET PO SCH (09:54)
[2018-10-24] MEDS: busPIRone HCL 5 MG TABLET PO SCH ×2 (09:54→21:45)
[2018-10-24] MEDS: DILTIAZEM HCL 30 MG TABLET PO SCH ×2 (09:54→21:00)
[2018-10-24] MEDS: FAMOTIDINE 20 MG TABLET PO SCH (09:54)
[2018-10-24] MEDS: OMEPRAZOLE 20 MG CAPSULE.DR (PriLOSEC) PO SCH (09:55)
[2018-10-24] MEDS: DONEPEZIL HCL 5 MG TABLET (ARICEPT) PO SCH (09:57)
[2018-10-24] MEDS: BRIMONIDINE TARTRATE 0.2% 5 mL EYE DROPS OP SCH ×2 (10:03→21:43)
[2018-10-24] MEDS: QUEtiapine FUMARATE 25 MG TABLET PO SCH (18:04)
[2018-10-24] MEDS: LATANOPROST 2.5 ML DROPS (XALATAN) OP SCH (21:44)
[2018-10-25 00:39] VITALS: BP_SYST 99
[2018-10-25] MEDS: FUROSEMIDE 20 MG/2 ML VIAL IVP SCH (05:24)
[2018-10-25 07:01] LABS: BASOPHILS % (AUTO) 0.5 % (0.0-2.0); EOSINOPHILS # (AUTO) 0.1 K/uL (0.0-0.4); EOSINOPHILS % (AUTO) 3.2 % (0.0-4.0); HEMATOCRIT 27.7 % (36-54); HEMOGLOBIN 9.3 g/dL (14.0-18.0); LYMPHOCYTES # (AUTO) 0.7 K/uL (1.0-5.5); LYMPHOCYTES % (AUTO) 17.7 % (20.5-51.5); MEAN CORPUSCULAR HEMOGLOBIN 29 pg (27-31); MEAN CORPUSCULAR HGB CONC 34 % (32-36); MEAN CORPUSCULAR VOLUME 87 fL (79.0-98.0); MONOCYTES # (AUTO) 0.5 K/uL (0.0-1.0); MONOCYTES % (AUTO) 13.7 % (1.7-9.3); NEUTROPHILS # (AUTO) 2.7 K/uL (1.8-7.7); NEUTROPHILS % (AUTO) 64.9 % (40.0-70.0); PLATELET COUNT (AUTO) 154 K/uL (130-430); RED BLOOD CELL COUNT(AUTO) 3.18 MIL/uL (4.2-6.2); RED CELL DISTRIBUTION WIDTH 16.1 % (9.0-15.0)
[2018-10-25 07:22] LABS: ALANINE AMINOTRANSFERASE 9 U/L (12-78); ALBUMIN 2.6 g/dL (3.4-4.8); ANION GAP 7 (5-15); ASPARTATE AMINOTRANSFERASE 13 U/L (10-37); CALCIUM 8.1 mg/dL (8.4-11.0); CHLORIDE 99 mmol/L (98-107); CREATININE 1.64 mg/dL (0.55-1.30); GLUCOSE 83 mg/dL (70-99); POTASSIUM 3.9 mmol/L (3.5-5.1); SODIUM SERUM 134 mmol/L (136-145); TOTAL BILIRUBIN 0.5 mg/dL (0.0-1.0); UREA NITROGEN, BLOOD 32 mg/dL (8-21)
[2018-10-25 08:00] VITALS: BP_SYST 101
[2018-10-25] MEDS: DONEPEZIL HCL 5 MG TABLET (ARICEPT) PO SCH (08:07)
[2018-10-25] MEDS: busPIRone HCL 5 MG TABLET PO SCH (08:08)
[2018-10-25] MEDS: FAMOTIDINE 20 MG TABLET PO SCH (08:08)
[2018-10-25] MEDS: BRIMONIDINE TARTRATE 0.2% 5 mL EYE DROPS OP SCH (08:08)
[2018-10-25] MEDS: DIGOXIN 0.125 MG TABLET PO SCH (08:09)
[2018-10-25] MEDS: OMEPRAZOLE 20 MG CAPSULE.DR (PriLOSEC) PO SCH (08:09)
[2018-10-25] MEDS: DILTIAZEM HCL 30 MG TABLET PO SCH (08:09)
[2018-10-25] MEDS: CARVEDILOL 3.125 MG TABLET (COREG) PO SCH (08:10)
[2018-10-25 10:45] VITALS: BP_SYST 101
== END 2018-10-25 11:10 | disposition home health service (06) | DRG 432 ==
LOC: SED 21:10 → STU 10-22 00:52 → SMU 10-24 04:08
PROVIDERS: ADMIT Internal Medicine; ATTEND Internal Medicine
PROC: 0W9G3ZZ Drainage of Peritoneal Cavity, Percutaneous Approach (ICD-10-PCS; principal; 2018-10-21)
DX: K74.60 Unspecified cirrhosis of liver (principal); I50.33 Acute on chronic diastolic (congestive) heart failure; I13.0 Hypertensive heart and chronic kidney disease with heart failure and stage 1 through stage 4 chronic kidney disease, or unspecified chronic kidney disease; R18.8 Other ascites; I27.20 Pulmonary hypertension, unspecified; N18.3 Chronic kidney disease, stage 3 (moderate); D64.9 Anemia, unspecified; F03.90 Unspecified dementia, unspecified severity, without behavioral disturbance, psychotic disturbance, mood disturbance, and anxiety; F41.9 Anxiety disorder, unspecified; I48.91 Unspecified atrial fibrillation; K76.9 Liver disease, unspecified; Z95.0 Presence of cardiac pacemaker; Z79.899 Other long term (current) drug therapy
CPT/HCPCS: 36415; 49083; 71045; 76700-TC; 80048; 80053; 81003; 83605; 83880; 85025; 85610-TC; 87040-TC; 88108; 93306; 97110-GP; 97116-GP; 97530-GP; 99285; G0378; J1940; J2001

== ENCOUNTER 2018-11-14 09:29 | Day surgery (SDC) | payer OTHER ==
[~2018-11-14] VITALS: Ht 157.5 cm; Wt 71.2 kg
[~2018-11-14 09:29] MED LIST changes: +BIMA2.5D5 OP; +BRIM15DR8 OP
[2018-11-14 11:30] VITALS: BP_SYST 98
== END 2018-11-14 13:32 | disposition home or self-care (01) ==
LOC: SDS 09:29
PROVIDERS: ATTEND Internal Medicine
DX: R18.8 Other ascites (principal)
CPT/HCPCS: 49083; C1729; G0378

== ENCOUNTER 2018-12-07 09:50 | Day surgery (SDC) | payer OTHER ==
[2018-12-07 12:16] VITALS: BP_SYST 95
[2018-12-07] MEDS ORDERED: NS 500 ML IV ONE (14:00)
== END 2018-12-07 15:30 | disposition home or self-care (01) ==
LOC: SDS 09:50
PROVIDERS: ATTEND Internal Medicine Gastroenterology
DX: R18.8 Other ascites (principal)
CPT/HCPCS: 49083; C1729; G0378

== ENCOUNTER 2018-12-31 15:56 | Inpatient (IN) | payer OTHER ==
[~2018-12-31] VITALS: Ht 152.4 cm; Wt 68.9 kg
[2018-12-31 16:09] VITALS: BP_SYST 127
[2018-12-31] MEDS ORDERED: cefTRIAXone 1 GM IVPB PREMIX 50 ML IV ONE (16:15)
[2018-12-31] MEDS ORDERED: methylPREDNISolone SOD SUCC/PF 62.5 MG/ML VIAL IVP ONE (16:30)
[2018-12-31] MEDS ORDERED: IPRATROPIUM BROM 0.5 MG/2.5 ML VIAL.NEB (ATROVENT) IH ONE (16:30)
[2018-12-31] MEDS ORDERED: ALBUTEROL SULFATE 0.083% 2.5 MG/3 ML VIAL.NEB IH ONE (16:30)
[2018-12-31 16:49] LABS: RED BLOOD CELL COUNT(AUTO) 3.89 MIL/uL (4.2-6.2); WHITE BLOOD COUNT (AUTO) 6.4 K/uL (4.8-10.8)
[2018-12-31 16:50] LABS: HEMATOCRIT 33.4 % (36-54); HEMOGLOBIN 10.8 g/dL (14.0-18.0); MEAN CORPUSCULAR HEMOGLOBIN 28 pg (27-31); MEAN CORPUSCULAR HGB CONC 32 % (32-36); MEAN CORPUSCULAR VOLUME 86 fL (79.0-98.0); PLATELET COUNT (AUTO) 164 K/uL (130-430); RED CELL DISTRIBUTION WIDTH 17.8 % (9.0-15.0)
[2018-12-31 16:51] LABS: BASOPHILS % (AUTO) 0.7 % (0.0-2.0); EOSINOPHILS % (AUTO) 0.1 % (0.0-4.0); LYMPHOCYTES # (AUTO) 0.7 K/uL (1.0-5.5); LYMPHOCYTES % (AUTO) 10.5 % (20.5-51.5); MONOCYTES # (AUTO) 0.8 K/uL (0.0-1.0); MONOCYTES % (AUTO) 11.7 % (1.7-9.3)
[2018-12-31 17:01] LABS: ANION GAP 13 (5-15); CALCIUM 8.7 mg/dL (8.4-11.0); CHLORIDE 101 mmol/L (98-107); CREATININE 2.06 mg/dL (0.55-1.30); GLUCOSE 134 mg/dL (70-99); POTASSIUM 4.1 mmol/L (3.5-5.1); SODIUM SERUM 135 mmol/L (136-145); UREA NITROGEN, BLOOD 43 mg/dL (8-21)
[2018-12-31 17:06] LABS: ALANINE AMINOTRANSFERASE 13 U/L (12-78); ALBUMIN 3.4 g/dL (3.4-4.8); ASPARTATE AMINOTRANSFERASE 23 U/L (10-37); TOTAL BILIRUBIN 1.5 mg/dL (0.0-1.0)
[2018-12-31] MEDS ORDERED: NACL 0.9% 2,000 ML IV ONE (17:30)
[2018-12-31] MEDS ORDERED: FUROSEMIDE 40 MG/4 ML VIAL IVP ONE (19:30)
[2018-12-31 19:52] VITALS: BP_SYST 123
[2018-12-31] MEDS ORDERED: ACETAMINOPHEN 650 MG SUPP.RECT RC PRN (20:30)
[2018-12-31] MEDS ORDERED: LevALBUTEROL HCL 1.25 MG/0.5 ML *CONC.* VIAL.NEB (XOPENEX CONC.) INH SCH (20:30)
[2018-12-31] MEDS ORDERED: LevALBUTEROL HCL 1.25 MG/0.5 ML *CONC.* VIAL.NEB (XOPENEX CONC.) INH PRN ×2 (20:30)
[2018-12-31] MEDS: DILTIAZEM HCL 30 MG TABLET PO SCH (20:48)
[2018-12-31] MEDS: FUROSEMIDE 20 MG/2 ML VIAL IVP SCH (20:49)
[2018-12-31] MEDS: CARVEDILOL 3.125 MG TABLET (COREG) PO SCH (20:49)
[2018-12-31] MEDS: busPIRone HCL 5 MG TABLET PO SCH (20:49)
[2018-12-31 20:53] VITALS: BP_SYST 111
[2018-12-31] MEDS: LATANOPROST 2.5 ML DROPS (XALATAN) OP SCH (21:00)
[2018-12-31] MEDS: BRIMONIDINE TARTRATE 0.2% 5 mL EYE DROPS OP SCH (21:00)
[2018-12-31] MEDS ORDERED: RIOCIGUAT 2.5 MG PO SCH (21:00)
[2019-01-01] MEDS: LevALBUTEROL HCL 1.25 MG/0.5 ML *CONC.* VIAL.NEB (XOPENEX CONC.) INH SCH ×4 (00:42→19:46)
[2019-01-01 04:00] VITALS: BP_SYST 116
[2019-01-01 07:38] LABS: ANION GAP 7 (5-15); CALCIUM 8.5 mg/dL (8.4-11.0); CHLORIDE 103 mmol/L (98-107); GLUCOSE 148 mg/dL (70-99); POTASSIUM 4.2 mmol/L (3.5-5.1); SODIUM SERUM 137 mmol/L (136-145)
[2019-01-01 07:39] LABS: CREATININE 2.11 mg/dL (0.55-1.30); DIGOXIN 1.1 ng/mL (0.80-2.00); UREA NITROGEN, BLOOD 46 mg/dL (8-21)
[2019-01-01 08:00] VITALS: BP_SYST 115
[2019-01-01] MEDS: FAMOTIDINE 20 MG TABLET PO SCH (08:13)
[2019-01-01] MEDS: busPIRone HCL 5 MG TABLET PO SCH ×2 (08:14→20:27)
[2019-01-01] MEDS: FUROSEMIDE 20 MG/2 ML VIAL IVP SCH ×2 (08:16→20:29)
[2019-01-01] MEDS: DONEPEZIL HCL 5 MG TABLET (ARICEPT) PO SCH (08:16)
[2019-01-01] MEDS: DIGOXIN 0.125 MG TABLET PO SCH (08:16)
[2019-01-01] MEDS: CARVEDILOL 3.125 MG TABLET (COREG) PO SCH ×2 (08:17→20:28)
[2019-01-01] MEDS: DILTIAZEM HCL 30 MG TABLET PO SCH ×2 (08:17→20:28)
[2019-01-01 08:25] LABS: HEMATOCRIT 33.1 % (36-54); HEMOGLOBIN 10.6 g/dL (14.0-18.0); MEAN CORPUSCULAR HEMOGLOBIN 28 pg (27-31); MEAN CORPUSCULAR HGB CONC 32 % (32-36); MEAN CORPUSCULAR VOLUME 86 fL (79.0-98.0); PLATELET COUNT (AUTO) 152 K/uL (130-430); RED BLOOD CELL COUNT(AUTO) 3.86 MIL/uL (4.2-6.2); RED CELL DISTRIBUTION WIDTH 17.3 % (9.0-15.0); WHITE BLOOD COUNT (AUTO) 3.7 K/uL (4.8-10.8)
[2019-01-01] MEDS: OMEPRAZOLE 20 MG CAPSULE.DR (PriLOSEC) PO SCH (09:00)
[2019-01-01 11:00] LABS: BASOPHILS % (AUTO) 0.1 % (0.0-2.0); LYMPHOCYTES # (AUTO) 0.3 K/uL (1.0-5.5); LYMPHOCYTES % (AUTO) 7.9 % (20.5-51.5); MONOCYTES # (AUTO) 0.1 K/uL (0.0-1.0); MONOCYTES % (AUTO) 2.2 % (1.7-9.3); NEUTROPHILS # (AUTO) 3.3 K/uL (1.8-7.7); NEUTROPHILS % (AUTO) 89.9 % (40.0-70.0)
[2019-01-01 11:23] VITALS: BP_SYST 109
[2019-01-01 13:45] LABS: INR 1.5 (0.80-1.20)
[2019-01-01 15:31] VITALS: BP_SYST 102
[2019-01-01 17:07] LABS: APPEARANCE,SPUN,BODY FLUID CLEAR (CLEAR); BF APPEARANCE UNSPUN HAZY (CLEAR); BODY FLUID COLOR AMBER (LT YELLOW); BODY FLUID SOURCE/ TYPE PARACENTESIS; SOURCE/TYPE ,BODY FLUID ASCITES
[2019-01-01 17:08] LABS: BODY FLUID TOTAL VOLUME 5000 mL
[2019-01-01 18:40] LABS: NEUTROPHIL, BODY FLUID 32 %; RBC, BODY FLUID 2896 /uL; WBC, BODY FLUID 35 /uL
[2019-01-01 18:41] LABS: LYMPHOCYTES, BODY FLUID 54 %; MONOCYTES,BODY FLUID 14 %
[2019-01-01 19:20] VITALS: BP_SYST 105
[2019-01-01] MEDS: BRIMONIDINE TARTRATE 0.2% 5 mL EYE DROPS OP SCH (21:00)
[2019-01-01] MEDS: LATANOPROST 2.5 ML DROPS (XALATAN) OP SCH (21:00)
[2019-01-01 22:14] LABS: BODY FLUID GLUCOSE 213 mg/dL
[2019-01-01 22:15] LABS: BODY FLUID TOTAL PROTEIN 3.8 g/dL
[2019-01-02 00:22] VITALS: BP_SYST 102
[2019-01-02 00:26] VITALS: BP_SYST 102
[2019-01-02 01:04] LABS: BILIRUBIN,URINE NEGATIVE (NEGATIVE); BLOOD, URINE NEGATIVE (NEGATIVE); CLARITY/URINE CLEAR (CLEAR); COLOR,URINE YELLOW (YELLOW); GLUCOSE,URINE NEGATIVE (NEGATIVE); KETONES,URINE TRACE (NEGATIVE); LEUKOCYTE ESTERASE ,URINE NEGATIVE (NEGATIVE); NITRITE, URINE NEGATIVE (NEGATIVE); PROTEIN URINE 1+ (NEGATIVE); UROBILINOGEN,URINE 0.2 (0.2-1.0)
[2019-01-02 01:10] LABS: BACTERIA,URINE FEW /HPF (None Seen); HYALINE CASTS, URINE 0-10 /LPF (None Seen); RBC,URINE 0-3 /HPF (0-3); WBC,URINE 0-3 /HPF (0-3)
[2019-01-02] MEDS: LevALBUTEROL HCL 1.25 MG/0.5 ML *CONC.* VIAL.NEB (XOPENEX CONC.) INH SCH ×2 (01:14→07:28)
[2019-01-02] MEDS: OMEPRAZOLE 20 MG CAPSULE.DR (PriLOSEC) PO SCH (06:32)
[2019-01-02 08:01] LABS: ANION GAP 12 (5-15); CALCIUM 8.1 mg/dL (8.4-11.0); CHLORIDE 101 mmol/L (98-107); CREATININE 2.18 mg/dL (0.55-1.30); GLUCOSE 145 mg/dL (70-99); POTASSIUM 4.5 mmol/L (3.5-5.1); SODIUM SERUM 137 mmol/L (136-145); UREA NITROGEN, BLOOD 64 mg/dL (8-21)
[2019-01-02 08:03] LABS: HEMATOCRIT 30.5 % (36-54); MEAN CORPUSCULAR HEMOGLOBIN 28 pg (27-31); MEAN CORPUSCULAR VOLUME 86 fL (79.0-98.0); RED BLOOD CELL COUNT(AUTO) 3.55 MIL/uL (4.2-6.2); WHITE BLOOD COUNT (AUTO) 10.1 K/uL (4.8-10.8)
[2019-01-02 08:04] LABS: MEAN CORPUSCULAR HGB CONC 33 % (32-36); PLATELET COUNT (AUTO) 152 K/uL (130-430); RED CELL DISTRIBUTION WIDTH 17.5 % (9.0-15.0)
[2019-01-02 08:18] VITALS: BP_SYST 108
[2019-01-02 08:59] LABS: NEUTROPHILS % (AUTO) 90.1 % (40.0-70.0)
[2019-01-02 09:00] LABS: BASOPHILS % (AUTO) 0.1 % (0.0-2.0); LYMPHOCYTES # (AUTO) 0.3 K/uL (1.0-5.5); MONOCYTES # (AUTO) 0.7 K/uL (0.0-1.0); MONOCYTES % (AUTO) 6.8 % (1.7-9.3); NEUTROPHILS # (AUTO) 9.1 K/uL (1.8-7.7)
[2019-01-02] MEDS: BRIMONIDINE TARTRATE 0.2% 5 mL EYE DROPS OP SCH (09:00)
[2019-01-02] MEDS: busPIRone HCL 5 MG TABLET PO SCH (09:14)
[2019-01-02] MEDS: DILTIAZEM HCL 30 MG TABLET PO SCH (09:14)
[2019-01-02] MEDS: DONEPEZIL HCL 5 MG TABLET (ARICEPT) PO SCH (09:14)
[2019-01-02] MEDS: FAMOTIDINE 20 MG TABLET PO SCH (09:14)
[2019-01-02] MEDS: CARVEDILOL 3.125 MG TABLET (COREG) PO SCH (09:14)
[2019-01-02] MEDS: FUROSEMIDE 20 MG/2 ML VIAL IVP SCH (09:15)
[2019-01-02] MEDS: DIGOXIN 0.125 MG TABLET PO SCH (09:15)
[2019-01-02 12:48] VITALS: BP_SYST 97
[2019-01-02 12:49] VITALS: BP_SYST 97
== END 2019-01-02 13:10 | disposition home or self-care (01) | DRG 432 ==
LOC: SED 15:56 → STU 19:11
PROVIDERS: ADMIT Family Medicine; ATTEND Family Medicine
PROC: 0W9G3ZZ Drainage of Peritoneal Cavity, Percutaneous Approach (ICD-10-PCS; principal; 2019-01-01)
DX: K74.60 Unspecified cirrhosis of liver (principal); I50.23 Acute on chronic systolic (congestive) heart failure; G93.41 Metabolic encephalopathy; I13.0 Hypertensive heart and chronic kidney disease with heart failure and stage 1 through stage 4 chronic kidney disease, or unspecified chronic kidney disease; E87.2 Acidosis; D64.9 Anemia, unspecified; F03.90 Unspecified dementia, unspecified severity, without behavioral disturbance, psychotic disturbance, mood disturbance, and anxiety; N18.9 Chronic kidney disease, unspecified; M19.90 Unspecified osteoarthritis, unspecified site; Z79.899 Other long term (current) drug therapy; Z95.0 Presence of cardiac pacemaker
CPT/HCPCS: 36415; 49083; 71045; 80048; 80053; 80162-TC; 81000-TC; 82947-TC; 83605; 83735-TC; 83880; 84157-TC; 84484; 85025; 85610-TC; 85730-TC; 87040-TC; 87070-TC; 89051-TC; 89060-TC; 93005; 94640; 94760; 96365; 96375; 97112-GP; 99285; C1729; G0378; J0696; J1940; J2930; J7030; J7612; J7613

== ENCOUNTER 2019-01-24 07:50 | Day surgery (SDC) | payer OTHER ==
[~2019-01-24] VITALS: Ht 160 cm; Wt 70.8 kg
[2019-01-24] MEDS: ALBUMIN HUMAN 25% 100 ML IV ONE (09:35)
[2019-01-24 11:32] VITALS: BP_SYST 94
== END 2019-01-24 13:00 | disposition home or self-care (01) ==
LOC: SUS 07:50 → SDS 13:00
PROVIDERS: ATTEND Internal Medicine Gastroenterology
DX: R18.8 Other ascites (principal)
CPT/HCPCS: 49083; C1729; P9046

== ENCOUNTER 2019-02-01 10:49 | Day surgery (SDC) | payer OTHER ==
[~2019-02-01] VITALS: Ht 160 cm; Wt 71.2 kg
[~2019-02-01 10:49] MED LIST changes: +ALBUMIN HUMAN 25% 100 ML IV SCH
[2019-02-01] MEDS ORDERED: LIDOCAINE 1%, 20 ML MDV 20 ML ONE (11:47)
[2019-02-01 13:48] VITALS: BP_SYST 100
== END 2019-02-01 15:10 | disposition home or self-care (01) ==
LOC: SUS 10:49
PROVIDERS: ATTEND Internal Medicine Gastroenterology
DX: R18.8 Other ascites (principal); Z95.0 Presence of cardiac pacemaker; Z98.890 Other specified postprocedural states; M19.90 Unspecified osteoarthritis, unspecified site
CPT/HCPCS: 49083; C1729; J2001; P9046

== ENCOUNTER 2019-02-14 10:13 | Inpatient (IN) | payer OTHER ==
[~2019-02-14] VITALS: Ht 162.6 cm; Wt 72.6 kg
[~2019-02-14 10:13] MED LIST changes: -ALBUMIN HUMAN 25% 100 ML IV SCH
[2019-02-14 12:57] VITALS: BP_SYST 106
[2019-02-14] MEDS ORDERED: RIOCIGUAT 2.5 MG PO SCH (15:00)
[2019-02-14] MEDS ORDERED: FURO10VI27 IVP (15:01)
[2019-02-14] MEDS ORDERED: FUROSEMIDE 40 MG/4 ML VIAL IVP ONE (15:15)
[2019-02-14 15:45] LABS: BASOPHILS % (AUTO) 0.6 % (0.0-2.0); EOSINOPHILS # (AUTO) 0.1 K/uL (0.0-0.4); EOSINOPHILS % (AUTO) 1.4 % (0.0-4.0); HEMATOCRIT 27.2 % (36-54); HEMOGLOBIN 8.8 g/dL (14.0-18.0); LYMPHOCYTES # (AUTO) 0.7 K/uL (1.0-5.5); LYMPHOCYTES % (AUTO) 15.2 % (20.5-51.5); MEAN CORPUSCULAR HEMOGLOBIN 27 pg (27-31); MEAN CORPUSCULAR HGB CONC 32 % (32-36); MEAN CORPUSCULAR VOLUME 84 fL (79.0-98.0); MONOCYTES # (AUTO) 0.6 K/uL (0.0-1.0); MONOCYTES % (AUTO) 11.5 % (1.7-9.3); NEUTROPHILS # (AUTO) 3.5 K/uL (1.8-7.7); NEUTROPHILS % (AUTO) 71.3 % (40.0-70.0); PLATELET COUNT (AUTO) 181 K/uL (130-430); RED BLOOD CELL COUNT(AUTO) 3.25 MIL/uL (4.2-6.2); RED CELL DISTRIBUTION WIDTH 17.8 % (9.0-15.0); WHITE BLOOD COUNT (AUTO) 4.9 K/uL (4.8-10.8)
[2019-02-14 15:54] LABS: ANION GAP 5 (5-15); CALCIUM 8.9 mg/dL (8.4-11.0); CHLORIDE 94 mmol/L (98-107); CREATININE 1.73 mg/dL (0.55-1.30); GLUCOSE 104 mg/dL (70-99); SODIUM SERUM 128 mmol/L (136-145); UREA NITROGEN, BLOOD 36 mg/dL (8-21)
[2019-02-14 15:57] LABS: INR 1.2 (0.80-1.20)
[2019-02-14 15:59] LABS: ALANINE AMINOTRANSFERASE 8 U/L (12-78); ALBUMIN 2.9 g/dL (3.4-4.8); ASPARTATE AMINOTRANSFERASE 18 U/L (10-37)
[2019-02-14 16:23] LABS: BILIRUBIN,URINE NEGATIVE (NEGATIVE); BLOOD, URINE NEGATIVE (NEGATIVE); CLARITY/URINE CLEAR (CLEAR); COLOR,URINE YELLOW (YELLOW); GLUCOSE,URINE NEGATIVE (NEGATIVE); KETONES,URINE NEGATIVE (NEGATIVE); LEUKOCYTE ESTERASE ,URINE NEGATIVE (NEGATIVE); NITRITE, URINE NEGATIVE (NEGATIVE); PH,URINE 5.5 (5.0-8.0); PROTEIN URINE NEGATIVE (NEGATIVE)
[2019-02-14 17:08] VITALS: BP_SYST 116
[2019-02-14 20:00] VITALS: BP_SYST 95
[2019-02-14] MEDS: busPIRone HCL 5 MG TABLET PO SCH (20:08)
[2019-02-14] MEDS: DILTIAZEM HCL 30 MG TABLET PO SCH (20:09)
[2019-02-15] VITALS (7 sets, daily range): BP systolic 89–101
[2019-02-15 07:05] LABS: BASOPHILS % (AUTO) 0.6 % (0.0-2.0); EOSINOPHILS # (AUTO) 0.1 K/uL (0.0-0.4); HEMATOCRIT 24.5 % (36-54); LYMPHOCYTES # (AUTO) 0.7 K/uL (1.0-5.5); LYMPHOCYTES % (AUTO) 17.4 % (20.5-51.5); MEAN CORPUSCULAR HEMOGLOBIN 27 pg (27-31); MEAN CORPUSCULAR HGB CONC 32 % (32-36); MEAN CORPUSCULAR VOLUME 83 fL (79.0-98.0); MONOCYTES # (AUTO) 0.5 K/uL (0.0-1.0); MONOCYTES % (AUTO) 13.7 % (1.7-9.3); NEUTROPHILS # (AUTO) 2.6 K/uL (1.8-7.7); NEUTROPHILS % (AUTO) 66.3 % (40.0-70.0); PLATELET COUNT (AUTO) 175 K/uL (130-430); RED BLOOD CELL COUNT(AUTO) 2.95 MIL/uL (4.2-6.2); RED CELL DISTRIBUTION WIDTH 17.7 % (9.0-15.0)
[2019-02-15 07:25] LABS: ANION GAP 9 (5-15); CALCIUM 8.4 mg/dL (8.4-11.0); CHLORIDE 97 mmol/L (98-107); CREATININE 1.71 mg/dL (0.55-1.30); GLUCOSE 87 mg/dL (70-99); SODIUM SERUM 133 mmol/L (136-145); UREA NITROGEN, BLOOD 34 mg/dL (8-21)
[2019-02-15] MEDS: FUROSEMIDE 40 MG/4 ML VIAL IVP SCH ×2 (09:00→20:50)
[2019-02-15] MEDS: DILTIAZEM HCL 30 MG TABLET PO SCH ×2 (09:00→20:51)
[2019-02-15] MEDS: FAMOTIDINE 20 MG TABLET PO SCH (09:22)
[2019-02-15] MEDS: DIGOXIN 0.125 MG TABLET PO SCH (09:23)
[2019-02-15] MEDS: busPIRone HCL 5 MG TABLET PO SCH ×2 (09:23→20:50)
[2019-02-16 00:43] VITALS: BP_SYST 101
[2019-02-16 07:10] LABS: BASOPHILS % (AUTO) 0.9 % (0.0-2.0); EOSINOPHILS # (AUTO) 0.1 K/uL (0.0-0.4); EOSINOPHILS % (AUTO) 1.8 % (0.0-4.0); HEMATOCRIT 28.1 % (36-54); LYMPHOCYTES # (AUTO) 0.7 K/uL (1.0-5.5); LYMPHOCYTES % (AUTO) 15.5 % (20.5-51.5); MEAN CORPUSCULAR HEMOGLOBIN 27 pg (27-31); MEAN CORPUSCULAR HGB CONC 32 % (32-36); MEAN CORPUSCULAR VOLUME 84 fL (79.0-98.0); MONOCYTES # (AUTO) 0.6 K/uL (0.0-1.0); MONOCYTES % (AUTO) 12.6 % (1.7-9.3); NEUTROPHILS # (AUTO) 3.1 K/uL (1.8-7.7); NEUTROPHILS % (AUTO) 69.2 % (40.0-70.0); PLATELET COUNT (AUTO) 169 K/uL (130-430); RED BLOOD CELL COUNT(AUTO) 3.34 MIL/uL (4.2-6.2); RED CELL DISTRIBUTION WIDTH 17.8 % (9.0-15.0); WHITE BLOOD COUNT (AUTO) 4.5 K/uL (4.8-10.8)
[2019-02-16 07:37] LABS: ANION GAP 7 (5-15); CALCIUM 8.2 mg/dL (8.4-11.0); CHLORIDE 95 mmol/L (98-107); CREATININE 1.56 mg/dL (0.55-1.30); GLUCOSE 95 mg/dL (70-99); POTASSIUM 3.7 mmol/L (3.5-5.1); SODIUM SERUM 129 mmol/L (136-145); UREA NITROGEN, BLOOD 32 mg/dL (8-21)
[2019-02-16 08:16] VITALS: BP_SYST 100
[2019-02-16] MEDS: DILTIAZEM HCL 30 MG TABLET PO SCH (08:47)
[2019-02-16] MEDS: busPIRone HCL 5 MG TABLET PO SCH (08:47)
[2019-02-16] MEDS: FAMOTIDINE 20 MG TABLET PO SCH (08:47)
[2019-02-16] MEDS: DIGOXIN 0.125 MG TABLET PO SCH (08:47)
[2019-02-16] MEDS: FUROSEMIDE 40 MG/4 ML VIAL IVP SCH (08:47)
[2019-02-16] MEDS ORDERED: MILK OF MAGNESIA 30 ML UDC PO PRN (12:15)
[2019-02-16 12:36] VITALS: BP_SYST 130
[2019-02-16 13:26] VITALS: BP_SYST 130
[2019-02-16] MEDS ORDERED: DOCUSATE SODIUM 100 MG CAPSULE PO SCH (21:00)
== END 2019-02-16 14:00 | disposition home or self-care (01) | DRG 291 ==
LOC: SMU 12:43 → STU 13:50
PROVIDERS: ADMIT Internal Medicine; ATTEND Internal Medicine
PROC: 0W9G3ZZ Drainage of Peritoneal Cavity, Percutaneous Approach (ICD-10-PCS; principal; 2019-02-15)
DX: I13.0 Hypertensive heart and chronic kidney disease with heart failure and stage 1 through stage 4 chronic kidney disease, or unspecified chronic kidney disease (principal); J96.00 Acute respiratory failure, unspecified whether with hypoxia or hypercapnia; I50.43 Acute on chronic combined systolic (congestive) and diastolic (congestive) heart failure; E43 Unspecified severe protein-calorie malnutrition; E87.1 Hypo-osmolality and hyponatremia; K56.7 Ileus, unspecified; R18.8 Other ascites; K76.6 Portal hypertension; I27.20 Pulmonary hypertension, unspecified; D64.9 Anemia, unspecified; N18.3 Chronic kidney disease, stage 3 (moderate); K76.9 Liver disease, unspecified; I48.2 Chronic atrial fibrillation; F03.90 Unspecified dementia, unspecified severity, without behavioral disturbance, psychotic disturbance, mood disturbance, and anxiety; F41.9 Anxiety disorder, unspecified; E88.09 Other disorders of plasma-protein metabolism, not elsewhere classified; I08.1 Rheumatic disorders of both mitral and tricuspid valves
CPT/HCPCS: 36415; 49083; 80048; 80053; 81003; 83880; 85025; 85610-TC; 85730-TC; C1729; G0378; J1940

== ENCOUNTER 2019-02-21 09:04 | Day surgery (SDC) | payer OTHER ==
[~2019-02-21] VITALS: Ht 160 cm; Wt 72.6 kg
[~2019-02-21 09:04] MED LIST changes: +ALBUMIN HUMAN 25% 100 ML IV SCH; -CARV3.1246 PO; +FURO10VI27 IVP
[2019-02-21] MEDS ORDERED: ALBUMIN HUMAN 25% 100 ML IV SCH (09:25)
[2019-02-21 11:05] VITALS: BP_SYST 101
[2019-02-21] MEDS ORDERED: ALBUMIN HUMAN 25% 100 ML IV ONE (13:45)
== END 2019-02-21 13:30 | disposition home or self-care (01) ==
LOC: SUS 09:04 → SMU 13:26 → SDS 13:30
PROVIDERS: ATTEND Internal Medicine
DX: R18.8 Other ascites (principal); E66.9 Obesity, unspecified; I10 Essential (primary) hypertension; Z95.0 Presence of cardiac pacemaker; M19.90 Unspecified osteoarthritis, unspecified site
CPT/HCPCS: 49083; C1729; P9046; G0378

== ENCOUNTER 2019-03-06 17:52 | Inpatient (IN) | payer OTHER ==
[~2019-03-06] VITALS: Ht 160 cm; Wt 58.1 kg
--- NOTE | 2019-03-06 16:30 | NUR ---
Admission: Received direct admit from MD's office with diagnosis of CHF. Patient is alert and oriented, ambulatory. Dyspneic on exertion with saturation of 100% on room air. Started gauge 22 on the right hand. Pitting 4+Edema on bilateral legs, left hand and 2+ on the right hand. Oriented to room routine. Call light within reach. Spouse and daughter accompanied the patient.
[~2019-03-06 17:52] MED LIST changes: -ALBUMIN HUMAN 25% 100 ML IV SCH
[2019-03-06 18:54] VITALS: BP_SYST 101
--- NOTE | 2019-03-06 19:20 | NUR ---
Initial Note Received patient asleep but easily arousable. Awake, alert and oriented. Room air. Refused O2 at this time. No SOB noted and denies any pain or n/v at this time. Saline lock. Skin intact and no peripheral edema noted. Repositioned. VS taken and stable. Advised to call if he needs to go to the bathroom. Care and monitoring will be provided. Call light within reach. Bed alarm on and at lowest position at all times. Needs attended. Kept warm and comfortable. Awaiting Md call back for admission orders.
--- NOTE | 2019-03-06 19:47 | NUR ---
Bryce Cortes s/w Pam.
[2019-03-06 20:00] VITALS: BP_SYST 102
--- NOTE | 2019-03-06 21:08 | NUR ---
Second call for Dr. Cortes s/w Pam
--- NOTE | 2019-03-06 21:30 | NUR ---
Dr. Sophia Cortes called back with new orders, carried out. Notified MD of complete med reconciliation in computer. Due meds given as ordered. Provided urinal at the bedside. Consent obtained for US Guided Paracentesis. Abdomen is very distended and BLE edema +2, patient refused elevation on pillows. Given sandwich and extra blanket as requested. Needs attended. Kept warm and comfortable.
[2019-03-06] MEDS ORDERED: ACETAMINOPHEN 325 MG TABLET PO PRN (21:45)
[2019-03-06] MEDS: FUROSEMIDE 40 MG/4 ML VIAL IVP SCH (21:53)
[2019-03-06] MEDS ORDERED: FUROSEMIDE 40 MG/4 ML VIAL ONE (22:01)
--- NOTE | 2019-03-06 23:00 | NUR ---
RN Note Patient sleeping at this time. No SOB or grimacing noted.
--- NOTE | 2019-03-07 01:00 | NUR ---
RN Note Asleep, moves/turn by himself. No distress noted.
[2019-03-07 01:50] VITALS: BP_SYST 97
--- NOTE | 2019-03-07 03:40 | NUR ---
RN Note Patient is arousable. No complaints at this time. Refused to be transferred to another room. Emptied urinal about 200 ml alfredo colored urine. social media editor notified. Needs attended. Kept warm and comfortable.
--- NOTE | 2019-03-07 06:19 | NUR ---
End Note Afebrile. VS stable. No complain of pain, SOB or n/v throughout the night. Room air. Saline lock. Repositions self. Used urinal at night. Abdomen distended and firm. For US guided thoracentesis today, consent signed. Refused to have BLE elevated on pillows. No labs today. Care and monitoring provided per protocol. Call light within reach. Bed alarm on and at lowest position at all times. Needs attended. Kept warm and comfortable. Paced with uncontrolled a fib, BBB and PVCs on monitor.
--- NOTE | 2019-03-07 06:45 | NUR ---
Dr. Sophia Cortes arrived and saw the patient. Stat labs were ordered and CXR for today. Made him aware of DVT prophylaxis to start tonight.
[2019-03-07] MEDS ORDERED: ALBUMIN HUMAN 25% 100 ML IV ONE (07:00)
--- NOTE | 2019-03-07 07:32 | NUR ---
GI consult called: for Dr. Duque, regarding ascites, ordered by Dr. Cortes, spoke with Kanchan.
[2019-03-07 07:35] LABS: ANION GAP 4 (5-15); BASOPHILS % (AUTO) 0.4 % (0.0-2.0); CHLORIDE 96 mmol/L (98-107); CREATININE 1.65 mg/dL (0.55-1.30); EOSINOPHILS # (AUTO) 0.1 K/uL (0.0-0.4); EOSINOPHILS % (AUTO) 1.2 % (0.0-4.0); GLUCOSE 82 mg/dL (70-99); HEMATOCRIT 27.8 % (36-54); HEMOGLOBIN 8.9 g/dL (14.0-18.0); LYMPHOCYTES # (AUTO) 0.8 K/uL (1.0-5.5); LYMPHOCYTES % (AUTO) 18.4 % (20.5-51.5); MEAN CORPUSCULAR HEMOGLOBIN 26 pg (27-31); MEAN CORPUSCULAR HGB CONC 32 % (32-36); MEAN CORPUSCULAR VOLUME 82 fL (79.0-98.0); MONOCYTES # (AUTO) 0.5 K/uL (0.0-1.0); MONOCYTES % (AUTO) 10.9 % (1.7-9.3); NEUTROPHILS % (AUTO) 69.1 % (40.0-70.0); PLATELET COUNT (AUTO) 191 K/uL (130-430); RED CELL DISTRIBUTION WIDTH 17.3 % (9.0-15.0); SODIUM SERUM 129 mmol/L (136-145); UREA NITROGEN, BLOOD 30 mg/dL (8-21); WHITE BLOOD COUNT (AUTO) 4.4 K/uL (4.8-10.8)
[2019-03-07 07:40] LABS: INR 1.2 (0.80-1.20); PROTHROMBIN TIME 12.1 SECS (9.5-12.5)
[2019-03-07 07:41] LABS: ALANINE AMINOTRANSFERASE 9 U/L (12-78); ALBUMIN 2.6 g/dL (3.4-4.8); ASPARTATE AMINOTRANSFERASE 17 U/L (10-37); TOTAL BILIRUBIN 0.7 mg/dL (0.0-1.0)
[2019-03-07 08:00] VITALS: BP_SYST 89
--- NOTE | 2019-03-07 08:00 | NUR ---
Opening Note Report received from [facility] shift nurse. Patient is currently awake and resting in bed. O2 is at 2.5L via NC. +2 apple LE edema noted. Iv is on the right hand 22g, sl. Bed alarm is in place. Call light is within reach and in the lowest position. Will continue to monitor.
[2019-03-07] MEDS: DIGOXIN 0.125 MG TABLET PO SCH (08:30)
[2019-03-07] MEDS: FUROSEMIDE 40 MG/4 ML VIAL IVP SCH ×2 (08:30→20:02)
[2019-03-07] MEDS: OMEPRAZOLE 20 MG CAPSULE.DR (PriLOSEC) PO SCH (08:39)
[2019-03-07] MEDS: DONEPEZIL HCL 5 MG TABLET (ARICEPT) PO SCH (08:39)
[2019-03-07] MEDS: busPIRone HCL 5 MG TABLET PO SCH ×2 (08:39→20:08)
[2019-03-07] MEDS: BRIMONIDINE TARTRATE 0.2% 5 mL EYE DROPS OP SCH ×2 (09:00→20:06)
[2019-03-07] MEDS: ADEMPAS 2.5 MG PO SCH ×3 (09:07→20:10)
--- NOTE | 2019-03-07 10:14 | NUR ---
Physical Therapy order has been received and the chart reviewed. Patient has low blood pressure and is pending thoracentesis procedure today. Discussed with the patient's RN and agreed to attempt the evaluation tomorrow due today's status and pending procedure. Plan: Physical Therapy evaluation tomorrow.
[2019-03-07 10:45] VITALS: BP_SYST 105
--- NOTE | 2019-03-07 11:20 | NUR ---
RN Note Patient was undergoing a paracentesis when his BP dropped to 82/57. Paracentesis was stopped at this time. Only liters were removed. Will continue to check BP.
[2019-03-07 12:00] VITALS: BP_SYST 101
--- NOTE | 2019-03-07 12:02 | NUR ---
RN Note Current BP is 101/62, HR 84. Will continue to monitor
--- NOTE | 2019-03-07 14:38 | NUR ---
Rounds Patient is currently resting in bed. Call light is within reach.
[2019-03-07 14:46] LABS: APPEARANCE,SPUN,BODY FLUID CLEAR (CLEAR); BF APPEARANCE UNSPUN HAZY (CLEAR); BODY FLUID COLOR RED (LT YELLOW); BODY FLUID SOURCE/ TYPE ASCITES; SOURCE/TYPE ,BODY FLUID PARACENTESIS
[2019-03-07 14:47] LABS: BODY FLUID TOTAL VOLUME 2200 mL; MONOCYTES,BODY FLUID 95 %; NEUTROPHIL, BODY FLUID 5 %; WBC, BODY FLUID 28 /uL
[2019-03-07 16:00] VITALS: BP_SYST 87
--- NOTE | 2019-03-07 16:05 | NUR ---
Dietitian Recommendations * Recommend 2 gm Na, mechanical soft, chopped diet LP, RD Please refer to Nutrition Assessment for details.
[2019-03-07 16:34] LABS: BODY FLUID GLUCOSE 108 mg/dL; BODY FLUID TOTAL PROTEIN 3.4 g/dL
--- NOTE | 2019-03-07 16:41 | NUR ---
Rounds Patient has no complaints at the moment. Call light is within reach.
--- NOTE | 2019-03-07 18:55 | NUR ---
Closing Note Patient is resting in bed. Family is at the bedside. Patient reports having less SOB at the moment. IV is on the right hand 22g , sl. Call light is within reach and bed is in low position. Will endorse care to the oncoming nurse.
--- NOTE | 2019-03-07 20:00 | NUR ---
Initial note: Received report from dayshift RN. Patient is in bed watching TV, no distress. Respirations even and unlabored on room air. IV sites noted to right hand and left forearm, sites are saline locked, patent and benign. Call light is with patient. Bed locked in lowest position with side rails x3 raised, bed alarm on. Will continue with plan of care.
[2019-03-07 20:01] VITALS: BP_SYST 94
[2019-03-07] MEDS: LATANOPROST 2.5 ML DROPS (XALATAN) OP SCH (20:06)
--- NOTE | 2019-03-07 22:54 | NUR ---
Note: Patient is confused and getting out of bed, states that he needs to go to his bed. Reoriented patient to his surroundings, patient still refused to get back into bed. Faiza was called, who spoke to patient to calm him down. Patient calmed down and ambulated back to bed with RN assist. Safety and fall precautions observed. Will closely monitor patient.
[2019-03-08] VITALS (8 sets, daily range): BP systolic 83–105
--- NOTE | 2019-03-08 01:44 | NUR ---
Rounds: Patient is resting in bed, no distress. Respirations even and unlabored on 2L NC. Safety and fall precautions in place. RN at bedside to maintain close monitoring of patient.
--- NOTE | 2019-03-08 04:51 | NUR ---
Rounds: Patient is resting in bed, no distress. Respirations even and unlabored on 2L NC. Safety and fall precautions in place. Will continue to monitor.
--- NOTE | 2019-03-08 06:05 | NUR ---
Closing note: Patient is resting in bed, does not show any distress. Respirations are even and unlabored on 2L NC. BP at this time is 95/68, patient has no complaints of dizziness or shortness of breath. Call light with patient. Safety, fall precautions observed. Will endorse to dayshift RN.
[2019-03-08 06:55] LABS: BASOPHILS % (AUTO) 0.5 % (0.0-2.0); EOSINOPHILS # (AUTO) 0.1 K/uL (0.0-0.4); EOSINOPHILS % (AUTO) 1.2 % (0.0-4.0); HEMATOCRIT 25.4 % (36-54); HEMOGLOBIN 8.3 g/dL (14.0-18.0); LYMPHOCYTES # (AUTO) 0.9 K/uL (1.0-5.5); LYMPHOCYTES % (AUTO) 19.5 % (20.5-51.5); MEAN CORPUSCULAR HEMOGLOBIN 27 pg (27-31); MEAN CORPUSCULAR HGB CONC 33 % (32-36); MEAN CORPUSCULAR VOLUME 81 fL (79.0-98.0); MONOCYTES # (AUTO) 0.5 K/uL (0.0-1.0); MONOCYTES % (AUTO) 10.6 % (1.7-9.3); NEUTROPHILS # (AUTO) 3.2 K/uL (1.8-7.7); NEUTROPHILS % (AUTO) 68.2 % (40.0-70.0); PLATELET COUNT (AUTO) 172 K/uL (130-430); RED BLOOD CELL COUNT(AUTO) 3.14 MIL/uL (4.2-6.2); RED CELL DISTRIBUTION WIDTH 17.4 % (9.0-15.0); WHITE BLOOD COUNT (AUTO) 4.7 K/uL (4.8-10.8)
[2019-03-08 07:26] LABS: ANION GAP 3 (5-15); CALCIUM 8.2 mg/dL (8.4-11.0); CHLORIDE 95 mmol/L (98-107); CREATININE 1.67 mg/dL (0.55-1.30); GLUCOSE 88 mg/dL (70-99); POTASSIUM 3.9 mmol/L (3.5-5.1); SODIUM SERUM 126 mmol/L (136-145); UREA NITROGEN, BLOOD 32 mg/dL (8-21)
[2019-03-08 07:37] LABS: TOTAL IRON BIND. CAPACITY 253 ug/dL (250-450)
--- NOTE | 2019-03-08 07:45 | NUR ---
Opening note Patient resting in bed, A/Ox3, No complaints of pain, No SOB, Lung sounds clear, O2 sat 97% on 2Lpm via nasal cannula. Abdomen distended, bowel sounds active. No BM at this time. Patient noted with pitting edema on both lower extremities. On fall precautions, reinforced, bed in lowest position, bed alarm on, call light within reach.
[2019-03-08] MEDS: FUROSEMIDE 40 MG/4 ML VIAL IVP SCH ×2 (09:00→20:53)
[2019-03-08] MEDS: DONEPEZIL HCL 5 MG TABLET (ARICEPT) PO SCH (09:26)
[2019-03-08] MEDS: OMEPRAZOLE 20 MG CAPSULE.DR (PriLOSEC) PO SCH (09:27)
[2019-03-08] MEDS: busPIRone HCL 5 MG TABLET PO SCH ×2 (09:27→20:50)
[2019-03-08] MEDS: DIGOXIN 0.125 MG TABLET PO SCH (09:28)
[2019-03-08] MEDS: ADEMPAS 2.5 MG PO SCH ×3 (09:43→20:49)
[2019-03-08] MEDS: BRIMONIDINE TARTRATE 0.2% 5 mL EYE DROPS OP SCH ×2 (10:25→20:51)
--- NOTE | 2019-03-08 12:40 | NUR ---
ATTEMPT PHYSICAL THERAPY TOMORROW. PATIENT CONTINUES TO HAVE LOW BLOOD PRESSURE. RN IS IN AGREEMENT.
--- NOTE | 2019-03-08 13:40 | NUR ---
Paracentesis (therapeutic): Completed with 2.1 L red fluid out. BP=83/52 during procedure at 1330 . Rechecked BP= 105/57 at the completion of the procedure. Kept patient flat on bed during and after procedure. Patient tolerated procedure well.
--- NOTE | 2019-03-08 18:23 | NUR ---
MD rounds/ Closing note Patient resting in bed, Dr. Cortes at bedside, No complaints of pain, No SOB. Abdomen distended, bowel sounds active. Unable to collect stool sample, no BM throughout day shift.On fall precautions, reinforced, bed in lowest position, bed alarm on, call light within reach. All needs met at this time.
--- NOTE | 2019-03-08 19:49 | NUR ---
INITIAL NOTE AT INITIAL ASSESSMENT, PATIENT IS RESTING IN BED, STABLE, NO SIGNS OF RESPIRATORY DISTRESS. PATIENT VERBALIZES NO PAIN. PLAN OF CARE FOR THE EVENING IS COMMUNICATED TO THE PATIENT. CALL LIGHT- TEACH BACK IS SUCCESSFUL. BED IS LOCKED, ALARMED, AND AT THE LOWEST LEVEL. FALL AND SAFETY PRECAUTIONS WILL BE IN PLACE THROUGHOUT THE SHIFT.
[2019-03-08] MEDS: POTASSIUM CHLORIDE 20 MEQ TAB.PRT.SR PO SCH (20:50)
[2019-03-08] MEDS: LATANOPROST 2.5 ML DROPS (XALATAN) OP SCH (20:52)
[2019-03-08] MEDS: METOLAZONE 2.5 MG TABLET PO SCH (21:00)
--- NOTE | 2019-03-08 21:46 | NUR ---
NOTE PATIENT IS RESTING IN BED, STABLE, NO SIGNS OF RESPIRATORY DISTRESS. CALL LIGHT IS WITHIN REACH. BED IS LOCKED, ALARMED, AND AT THE LOWEST LEVEL.
--- NOTE | 2019-03-08 23:45 | NUR ---
NOTE PATIENT IS SLEEPING, STABLE, NO SIGNS OF RESPIRATORY DISTRESS. CALL LIGHT IS WITHIN REACH. BED IS LOCKED, ALARMED, AND AT THE LOWEST LEVEL.
--- NOTE | 2019-03-09 01:42 | NUR ---
PATIENT ASSISTED TO BATHROOM PATIENT IS ASSISTED TO BATHROOM BY NAVIN IRIZARRY, HE IS STABLE, NO SIGNS OF RESPIRATORY DISTRESS. CALL LIGHT IS WITHIN REACH. BED IS LOCKED, ALARMED, AND AT THE LOWEST LEVEL.
[2019-03-09 02:30] VITALS: BP_SYST 92
--- NOTE | 2019-03-09 02:58 | NUR ---
NOTE PATIENT IS SLEEPING, STABLE, NO SIGNS OF RESPIRATORY DISTRESS. CALL LIGHT IS WITHIN REACH. BED IS LOCKED, ALARMED, AND AT THE LOWEST LEVEL.
--- NOTE | 2019-03-09 04:00 | NUR ---
NOTE PATIENT IS SLEEPING, STABLE, NO SIGNS OF RESPIRATORY DISTRESS. CALL LIGHT IS WITHIN REACH. BED IS LOCKED, ALARMED, AND AT THE LOWEST LEVEL.
--- NOTE | 2019-03-09 06:00 | NUR ---
CLOSING NOTE PATIENT SLEPT WELL THROUGHOUT THE SHIFT. AT THIS TIME, PATIENT IS RESTING IN BED, STABLE, NO SIGNS OF RESPIRATORY DISTRESS. CALL LIGHT IS WITHIN REACH. BED IS LOCKED, ALARMED, AND AT THE LOWEST LEVEL. FALL, AND SAFETY PRECAUTIONS HAVE BEEN IN PLACE THROUGHOUT THE SHIFT. WILL CONTINUE TO MONITOR UNTIL SHIFT REPORT IS GIVEN AT BEDSIDE TO AM NURSE.
[2019-03-09 07:01] LABS: BASOPHILS % (AUTO) 0.6 % (0.0-2.0); EOSINOPHILS # (AUTO) 0.1 K/uL (0.0-0.4); EOSINOPHILS % (AUTO) 1.5 % (0.0-4.0); HEMATOCRIT 27.5 % (36-54); HEMOGLOBIN 8.9 g/dL (14.0-18.0); LYMPHOCYTES # (AUTO) 0.9 K/uL (1.0-5.5); LYMPHOCYTES % (AUTO) 19.1 % (20.5-51.5); MEAN CORPUSCULAR HEMOGLOBIN 26 pg (27-31); MEAN CORPUSCULAR HGB CONC 32 % (32-36); MEAN CORPUSCULAR VOLUME 81 fL (79.0-98.0); MONOCYTES # (AUTO) 0.5 K/uL (0.0-1.0); NEUTROPHILS # (AUTO) 3.2 K/uL (1.8-7.7); NEUTROPHILS % (AUTO) 67.8 % (40.0-70.0); PLATELET COUNT (AUTO) 167 K/uL (130-430); RED BLOOD CELL COUNT(AUTO) 3.38 MIL/uL (4.2-6.2); RED CELL DISTRIBUTION WIDTH 17.2 % (9.0-15.0); WHITE BLOOD COUNT (AUTO) 4.8 K/uL (4.8-10.8)
[2019-03-09 07:25] LABS: ANION GAP 5 (5-15); CALCIUM 7.9 mg/dL (8.4-11.0); CHLORIDE 97 mmol/L (98-107); CREATININE 1.55 mg/dL (0.55-1.30); GLUCOSE 88 mg/dL (70-99); POTASSIUM 4.1 mmol/L (3.5-5.1); SODIUM SERUM 130 mmol/L (136-145); UREA NITROGEN, BLOOD 30 mg/dL (8-21)
--- NOTE | 2019-03-09 07:25 | NUR ---
AM ROUNDS: PATIENT ON THE BED SLEEPING. REPORT GIVEN BY NIGHT NURSE TONJA. CALL LIGHT WITH IN REACH. BED LOCKED AT LOWEST POSITION. BED ALARM ON. CONDITION GUARDED.
[2019-03-09 08:06] VITALS: BP_SYST 93
[2019-03-09] MEDS: DIGOXIN 0.125 MG TABLET PO SCH (08:18)
[2019-03-09] MEDS: DONEPEZIL HCL 5 MG TABLET (ARICEPT) PO SCH (08:18)
[2019-03-09] MEDS: POTASSIUM CHLORIDE 20 MEQ TAB.PRT.SR PO SCH ×2 (08:18→21:12)
[2019-03-09] MEDS: busPIRone HCL 5 MG TABLET PO SCH ×2 (08:18→21:12)
[2019-03-09] MEDS: OMEPRAZOLE 20 MG CAPSULE.DR (PriLOSEC) PO SCH (08:18)
[2019-03-09] MEDS: BRIMONIDINE TARTRATE 0.2% 5 mL EYE DROPS OP SCH ×2 (08:19→21:13)
[2019-03-09] MEDS: ADEMPAS 2.5 MG PO SCH ×3 (08:19→21:13)
--- NOTE | 2019-03-09 08:35 | NUR ---
rn rounds: Patient tolerated all po meds . no problem.
[2019-03-09] MEDS: FUROSEMIDE 40 MG/4 ML VIAL IVP SCH ×2 (09:00→21:00)
[2019-03-09] MEDS: METOLAZONE 2.5 MG TABLET PO SCH ×2 (09:00→21:00)
[2019-03-09] MEDS ORDERED: ALBUMIN HUMAN 25% 50 ML IV ONE (11:45)
--- NOTE | 2019-03-09 12:00 | NUR ---
lunch: patient having lunch. stable.
[2019-03-09 12:02] VITALS: BP_SYST 105
[2019-03-09 14:26] LABS: RBC, BODY FLUID 5778 /uL
--- NOTE | 2019-03-09 14:35 | NUR ---
Rn Rounds: Leaking left abdomen from yesterday's paracentesis,placed 4x4 dry dressing over it with paper tape.
--- NOTE | 2019-03-09 16:00 | NUR ---
RN ROUNDS: PATIENT ASSISTED ON THE CHAIR. NO DISTRESS.
[2019-03-09 16:02] VITALS: BP_SYST 101
--- NOTE | 2019-03-09 18:47 | NUR ---
END OF SHIFT: PATIENT HAD DINNER ALREADY. CALL LIGHT WITH IN REACH. BED LOCKED AT LOWEST POSITION. NO DISTRESS.
--- NOTE | 2019-03-09 19:45 | NUR ---
INITIAL NOTE AT INITIAL ASSESSMENT, PATIENT IS RESTING IN BED, STABLE, NO SIGNS OF RESPIRATORY DISTRESS. FAMILY IS AT BEDSIDE. PATIENT VERBALIZES NO PAIN. PLAN OF CARE FOR THE EVENING IS COMMUNICATED TO THE PATIENT AND HIS FAMILY. CALL LIGHT- TEACH BACK IS SUCCESSFUL. BED IS LOCKED, ALARMED, AND AT THE LOWEST LEVEL. FALL AND SAFETY PRECAUTIONS WILL BE IN PLACE THROUGHOUT THE SHIFT.
[2019-03-09 19:48] VITALS: BP_SYST 98
[2019-03-09] MEDS: LATANOPROST 2.5 ML DROPS (XALATAN) OP SCH (21:00)
--- NOTE | 2019-03-09 21:43 | NUR ---
MEDICATION NOTE PATIENT'S BLOOD PRESSURE IS STILL LOW AT THIS TIME, TWO MEDICATIONS THAT LOWER BLOOD PRESSURE ARE HELD. PATIENT IS ASYMPTOMATIC OF HYPOTENSION. HE IS STABLE, NO SIGNS OF RESPIRATORY DISTRESS. CALL LIGHT WITHIN REACH. BED IS LOCKED, ALARMED, AND AT THE LOWEST LEVEL.
--- NOTE | 2019-03-09 23:40 | NUR ---
NOTE PATIENT IS SLEEPING, STABLE, NO SIGNS OF RESPIRATORY DISTRESS. CALL LIGHT IS WITHIN REACH. BED IS LOCKED, ALARMED, AND AT THE LOWEST LEVEL.
[2019-03-10 00:36] VITALS: BP_SYST 107
--- NOTE | 2019-03-10 01:40 | NUR ---
WOUND CARE PERFORMED WOUND CARE PERFORMED AT THIS TIME. PATIENT TOLERATED WELL. PATIENT IS REPOSITIONED FOR COMFORT, HE IS STABLE, NO SIGNS OF RESPIRATORY DISTRESS. CALL LIGHT IS WITHIN REACH. BED IS LOCKED, ALARMED, AND AT THE LOWEST LEVEL.
--- NOTE | 2019-03-10 03:36 | NUR ---
NOTE PATIENT IS SLEEPING, STABLE, NO SIGNS OF RESPIRATORY DISTRESS. CALL LIGHT IS WITHIN REACH. BED IS LOCKED, ALARMED, AND AT THE LOWEST LEVEL.
--- NOTE | 2019-03-10 05:29 | NUR ---
NOTE PATIENT IS SLEEPING, STABLE, NO SIGNS OF RESPIRATORY DISTRESS. CALL LIGHT IS WITHIN REACH. BED IS LOCKED, ALARMED, AND AT THE LOWEST LEVEL.
[2019-03-10 06:48] LABS: BASOPHILS % (AUTO) 0.4 % (0.0-2.0); EOSINOPHILS # (AUTO) 0.1 K/uL (0.0-0.4); EOSINOPHILS % (AUTO) 1.6 % (0.0-4.0); HEMOGLOBIN 9.1 g/dL (14.0-18.0); LYMPHOCYTES # (AUTO) 0.8 K/uL (1.0-5.5); LYMPHOCYTES % (AUTO) 15.8 % (20.5-51.5); MEAN CORPUSCULAR HEMOGLOBIN 26 pg (27-31); MEAN CORPUSCULAR HGB CONC 33 % (32-36); MEAN CORPUSCULAR VOLUME 81 fL (79.0-98.0); MONOCYTES # (AUTO) 0.6 K/uL (0.0-1.0); MONOCYTES % (AUTO) 10.3 % (1.7-9.3); NEUTROPHILS # (AUTO) 3.9 K/uL (1.8-7.7); NEUTROPHILS % (AUTO) 71.9 % (40.0-70.0); PLATELET COUNT (AUTO) 165 K/uL (130-430); RED BLOOD CELL COUNT(AUTO) 3.45 MIL/uL (4.2-6.2); RED CELL DISTRIBUTION WIDTH 16.8 % (9.0-15.0); WHITE BLOOD COUNT (AUTO) 5.4 K/uL (4.8-10.8)
--- NOTE | 2019-03-10 07:31 | NUR ---
AM ROUNDS: BEDSIDE REPORT GIVE BY NIGHT NURSE SHINOSMIN. PATIENT SLEEPING.NO DISTRESS. CALL LIGHT WITH IN REACH. BED LOCKED AT LOWEST POSITION. CONTINUE TO MONITOR.
[2019-03-10 07:42] LABS: ANION GAP 7 (5-15); CALCIUM 8.2 mg/dL (8.4-11.0); CHLORIDE 94 mmol/L (98-107); CREATININE 1.39 mg/dL (0.55-1.30); GLUCOSE 85 mg/dL (70-99); POTASSIUM 4.6 mmol/L (3.5-5.1); SODIUM SERUM 127 mmol/L (136-145); UREA NITROGEN, BLOOD 30 mg/dL (8-21)
[2019-03-10 08:28] VITALS: BP_SYST 101
[2019-03-10] MEDS: ADEMPAS 2.5 MG PO SCH (08:33)
[2019-03-10] MEDS: POTASSIUM CHLORIDE 20 MEQ TAB.PRT.SR PO SCH (08:34)
[2019-03-10] MEDS: busPIRone HCL 5 MG TABLET PO SCH (08:34)
[2019-03-10] MEDS: BRIMONIDINE TARTRATE 0.2% 5 mL EYE DROPS OP SCH (08:34)
[2019-03-10] MEDS: OMEPRAZOLE 20 MG CAPSULE.DR (PriLOSEC) PO SCH (08:35)
[2019-03-10] MEDS: DIGOXIN 0.125 MG TABLET PO SCH (08:35)
[2019-03-10] MEDS: DONEPEZIL HCL 5 MG TABLET (ARICEPT) PO SCH (08:35)
[2019-03-10] MEDS: METOLAZONE 2.5 MG TABLET PO SCH (08:42)
[2019-03-10] MEDS: FUROSEMIDE 40 MG/4 ML VIAL IVP SCH (09:00)
--- NOTE | 2019-03-10 09:30 | NUR ---
Iv Lasix: Lasix iv not given due to low bp,md notified.
--- NOTE | 2019-03-10 12:00 | NUR ---
Rn Rounds: Patient having lunch.No problem.
[2019-03-10 12:02] VITALS: BP_SYST 106
[2019-03-10 14:11] VITALS: BP_SYST 106
--- NOTE | 2019-03-10 14:45 | NUR ---
Post Discharge Appointment: Instructed patient's Faiza to call the hospital tomorrow 03-11-19 for appointment schedule per CHF protocol.Pcp office close today ([id number]).
--- NOTE | 2019-03-10 14:50 | NUR ---
D/C Patient Patient given medication reconciliation form and D/C instructions. Exit Care provided. Patient and verbalized understanding. MD discussed with patient the results and treatment provided. Ambulatory with steady gait for discharge to home.Child Abuse Worker wheeled patient in the lobby with accompanied home in stable condition, ID band removed. IV catheter removed, intact and dressing applied, no active bleeding. Patient educated on pain management. All belongings sent home with patient.
--- NOTE | 2019-03-10 15:02 | NUR ---
P.T. NOTES P.T. PANKAJ COMPLETED; NURSING TO AMBULATE AD ANTONI. Addendum: 03/10/19 at 1503 by Brianna Richardson PT Amended: Links added.
--- NOTE | 2019-03-11 14:31 | NUR ---
PCP appointment Appointment made to follow up with Dr Cortes on 03/14/19 at 0930 am. Patient's is aware
--- NOTE | 2019-03-14 14:41 | NUR ---
Discharge Follow Up Phone Call NUT FEEDER phoned patient, , and spoke with patient's , Faiza. She speaks minimal Ethiopian but was able to communicate that patient attended his follow up appointment today with Dr Cortes. She did not relay that she had any questions or concerns.
== END 2019-03-10 14:40 | disposition home or self-care (01) | DRG 291 ==
LOC: SMU 17:52 → STU 18:20 → SMU 03-09 13:55
PROVIDERS: ADMIT Internal Medicine; ATTEND Internal Medicine
PROC: 0W9G3ZZ Drainage of Peritoneal Cavity, Percutaneous Approach (ICD-10-PCS; principal; 2019-03-07)
PROC: 0W9G3ZZ Drainage of Peritoneal Cavity, Percutaneous Approach (ICD-10-PCS; 2019-03-08)
DX: I50.23 Acute on chronic systolic (congestive) heart failure (principal); E43 Unspecified severe protein-calorie malnutrition; R18.8 Other ascites; F03.90 Unspecified dementia, unspecified severity, without behavioral disturbance, psychotic disturbance, mood disturbance, and anxiety; N18.9 Chronic kidney disease, unspecified; D63.1 Anemia in chronic kidney disease; I27.20 Pulmonary hypertension, unspecified; K76.1 Chronic passive congestion of liver; K76.89 Other specified diseases of liver; K76.9 Liver disease, unspecified; Z68.22 Body mass index [BMI] 22.0-22.9, adult
CPT/HCPCS: 36415; 49083; 71045; 80048; 80053; 82042; 82105; 82607; 82728; 82746; 82947-TC; 83010; 83540-TC; 83550-TC; 83735-TC; 84157-TC; 85025; 85610-TC; 85730-TC; 87070-TC; 87081; 89051-TC; 89060-TC; C1729; G0378; J1940; P9046

== ENCOUNTER 2019-03-20 16:07 | Inpatient (IN) | payer OTHER ==
[~2019-03-20] VITALS: Ht 154.9 cm; Wt 73.0 kg
[~2019-03-20 16:07] MED LIST changes: -FAMO20TA8 PO; -FURO10VI27 IVP
[2019-03-20 17:24] VITALS: BP_SYST 96
[2019-03-20 20:46] VITALS: BP_SYST 96
[2019-03-20] MEDS: MIDODRINE HCL 5 MG TABLET (PROAMATINE) PO SCH (20:50)
[2019-03-20] MEDS: METOLAZONE 2.5 MG TABLET PO SCH (20:50)
[2019-03-20] MEDS: FUROSEMIDE 40 MG/4 ML VIAL IVP SCH (20:51)
[2019-03-21] VITALS (7 sets, daily range): BP systolic 93–107
[2019-03-21 06:38] LABS: BASOPHILS % (AUTO) 0.7 % (0.0-2.0); EOSINOPHILS # (AUTO) 0.1 K/uL (0.0-0.4); EOSINOPHILS % (AUTO) 1.7 % (0.0-4.0); HEMOGLOBIN 8.2 g/dL (14.0-18.0); LYMPHOCYTES # (AUTO) 0.9 K/uL (1.0-5.5); LYMPHOCYTES % (AUTO) 18.2 % (20.5-51.5); MEAN CORPUSCULAR HEMOGLOBIN 26 pg (27-31); MEAN CORPUSCULAR HGB CONC 33 % (32-36); MEAN CORPUSCULAR VOLUME 80 fL (79.0-98.0); MONOCYTES # (AUTO) 0.5 K/uL (0.0-1.0); MONOCYTES % (AUTO) 10.9 % (1.7-9.3); NEUTROPHILS # (AUTO) 3.2 K/uL (1.8-7.7); NEUTROPHILS % (AUTO) 68.5 % (40.0-70.0); PLATELET COUNT (AUTO) 177 K/uL (130-430); RED BLOOD CELL COUNT(AUTO) 3.13 MIL/uL (4.2-6.2); WHITE BLOOD COUNT (AUTO) 4.7 K/uL (4.8-10.8)
[2019-03-21 07:01] LABS: ANION GAP 7 (5-15); CALCIUM 7.9 mg/dL (8.4-11.0); CHLORIDE 93 mmol/L (98-107); CREATININE 1.69 mg/dL (0.55-1.30); GLUCOSE 83 mg/dL (70-99); POTASSIUM 4.2 mmol/L (3.5-5.1); SODIUM SERUM 126 mmol/L (136-145); UREA NITROGEN, BLOOD 39 mg/dL (8-21)
[2019-03-21 07:11] LABS: INR 1.2 (0.80-1.20); PROTHROMBIN TIME 12.5 SECS (9.5-12.5)
[2019-03-21 07:16] LABS: ALANINE AMINOTRANSFERASE 10 U/L (12-78); ALBUMIN 2.2 g/dL (3.4-4.8); ASPARTATE AMINOTRANSFERASE 17 U/L (10-37); TOTAL BILIRUBIN 0.7 mg/dL (0.0-1.0)
[2019-03-21] MEDS: FUROSEMIDE 40 MG/4 ML VIAL IVP SCH ×2 (08:26→21:00)
[2019-03-21] MEDS: METOLAZONE 2.5 MG TABLET PO SCH ×2 (08:30→21:06)
[2019-03-21] MEDS: MIDODRINE HCL 5 MG TABLET (PROAMATINE) PO SCH ×2 (08:30→21:05)
[2019-03-21] MEDS ORDERED: ALBUMIN HUMAN 25% 50 ML IV ONE (09:00)
[2019-03-22 00:33] VITALS: BP_SYST 95
[2019-03-22 07:29] LABS: BASOPHILS % (AUTO) 0.2 % (0.0-2.0); EOSINOPHILS # (AUTO) 0.1 K/uL (0.0-0.4); HEMATOCRIT 26.2 % (36-54); HEMOGLOBIN 8.6 g/dL (14.0-18.0); LYMPHOCYTES % (AUTO) 21.8 % (20.5-51.5); MEAN CORPUSCULAR HEMOGLOBIN 26 pg (27-31); MEAN CORPUSCULAR HGB CONC 33 % (32-36); MEAN CORPUSCULAR VOLUME 80 fL (79.0-98.0); MONOCYTES # (AUTO) 0.4 K/uL (0.0-1.0); MONOCYTES % (AUTO) 9.6 % (1.7-9.3); NEUTROPHILS % (AUTO) 66.4 % (40.0-70.0); PLATELET COUNT (AUTO) 171 K/uL (130-430); RED BLOOD CELL COUNT(AUTO) 3.27 MIL/uL (4.2-6.2); RED CELL DISTRIBUTION WIDTH 16.9 % (9.0-15.0); WHITE BLOOD COUNT (AUTO) 4.5 K/uL (4.8-10.8)
[2019-03-22 07:36] LABS: ANION GAP 7 (5-15); CALCIUM 7.6 mg/dL (8.4-11.0); CHLORIDE 93 mmol/L (98-107); CREATININE 1.57 mg/dL (0.55-1.30); GLUCOSE 84 mg/dL (70-99); POTASSIUM 3.1 mmol/L (3.5-5.1); SODIUM SERUM 127 mmol/L (136-145); UREA NITROGEN, BLOOD 35 mg/dL (8-21)
[2019-03-22 08:36] VITALS: BP_SYST 90
[2019-03-22] MEDS: MIDODRINE HCL 5 MG TABLET (PROAMATINE) PO SCH (08:43)
[2019-03-22] MEDS: METOLAZONE 2.5 MG TABLET PO SCH (08:44)
[2019-03-22] MEDS: FUROSEMIDE 40 MG/4 ML VIAL IVP SCH (08:44)
[2019-03-22 11:19] VITALS: BP_SYST 100
[2019-03-22 15:23] VITALS: BP_SYST 96
[2019-03-22] MEDS ORDERED: POTASSIUM CHLORIDE 20 MEQ TAB.PRT.SR PO ONE (16:15)
[2019-03-22 16:28] VITALS: BP_SYST 94
[2019-03-22] MEDS ORDERED: MIDO5TAB PO (17:32)
== END 2019-03-22 18:20 | disposition home or self-care (01) | DRG 291 ==
LOC: STU 16:44
PROVIDERS: ADMIT Internal Medicine; ATTEND Internal Medicine
PROC: 0W9G30Z Drainage of Peritoneal Cavity with Drainage Device, Percutaneous Approach (ICD-10-PCS; principal; 2019-03-21)
DX: I50.9 Heart failure, unspecified (principal); E43 Unspecified severe protein-calorie malnutrition; R18.8 Other ascites; E87.1 Hypo-osmolality and hyponatremia; I27.20 Pulmonary hypertension, unspecified; F03.90 Unspecified dementia, unspecified severity, without behavioral disturbance, psychotic disturbance, mood disturbance, and anxiety; K72.10 Chronic hepatic failure without coma; N18.3 Chronic kidney disease, stage 3 (moderate); D64.9 Anemia, unspecified; Z68.30 Body mass index [BMI] 30.0-30.9, adult
CPT/HCPCS: 36415; 49083; 80048; 80053; 85025; 85610-TC; 85730-TC; 87081; C1729; G0378; J1940; P9046